=== PATIENT | female | born 1950 | race Caucasian/White ===

== ENCOUNTER 2022-10-21 16:16 | Outpatient (REF) | payer MEDICARE, SELFPAY ==
[2022-10-21 17:33] LABS: Absolute Basophil Count 0.02 10^3/uL (0.0-0.2); Absolute Eosinophil Count 0.05 10^3/uL (0.0-0.7); Absolute Lymphocyte Count 2.02 10^3/uL (1.2-3.4); Absolute Neutrophil Count 1.17 10^3/uL (1.2-6.7); Basophils % 0.6; Eosinophils % 1.4; HCT 23.5 % (36.0-46.0); HGB 8.7 g/dL (11.2-15.7); Lymphocytes % 58.4; MCH 36.4 pg (27.0-33.0); MCV 98 fL (80-95); MPV 11.5 fL (8.0-11.0); Monocytes % 5.8; Neutrophils % 33.8; Platelet Count 100 10^3/uL (130-400); RBC 2.39 10^6/uL (3.93-5.22); RDW-SD 61.1 fL; WBC 3.46 10^3/uL (4.4-10.8)
== END 2022-10-21 16:17 | disposition home or self-care (01) ==
LOC: LBN 16:16
PROVIDERS: Visit Provider Obstetrics & Gynecology Gynecologic Oncology
DX: C54.1 Malignant neoplasm of endometrium (principal)
CPT/HCPCS: 85025

== ENCOUNTER 2025-01-01 19:00 | Inpatient (IN) | payer MEDICARE, SELFPAY ==
--- NOTE | 2025-01-01 18:14 | W.PC.ACHO ---
Registration Status: PRE IN Primary Language: Preferred Language: v v v v v v v v v Sending and/or Receiving Nurses: Please use comment section below to note any information pertinent to the patient hand-off not included above. Information / Comments: alert and oriented x 4 Lungs clear and RA last BM 12/31 continent with bedside commode Left AKA +2 edema: mildred intact and open to air right leg intact +1 edema: Heel calus that weeps, bandage is c/d/I patient able to stand and pivot current smoker Fingerstick glucose range 180s-200s Full Code Report received from: Kelton Uriarte, [facility]
[2025-01-01 19:29] VITALS: BP 117/69; PULSE 85; RESP 15; TEMP 36.4; O2SAT 96
--- NOTE | 2025-01-01 22:57 | W.PM.HP.N ---
Date of service: 01/01/25 Time of Service: 20:00 Assessment and Plan Assessment and plan (1) Status post above-knee amputation of left lower extremity: Start date: 12/20/24 Status: Acute Assessment and plan: This is a 74-year-old lady who had an ischemic limb prior to hospitalization at [facility] 12/20/2024 at which time she required left AKA with advanced tissue damage from prolonged hypoxia after thrombus and occlusion of her left superficial femoral artery. She had no collaterals. She is doing well postoperatively with her wound stump clean and dry. She is weak and not able to transfer safely and will need to rehabilitate to be independent at home alone with her son working during the day. She does live with her son and plan to return to that living situation. PT and OT will be consulted and patient will continue her chronic medical therapy including diabetes control while hospitalized. She is reconsidering whether to continue chemotherapy for her recurrent stage III endometrial adenocarcinoma. For now, she is a full code. (2) PVD (peripheral vascular disease): Status: Chronic Assessment and plan: Patient had no knowledge of PVD in the past and this acute thrombus may have been prompted by her hypercoagulability with recurrent cancer and chronic tobacco use as well as having hyperlipidemia with hypertension. She has never had a cardiac event. Now she is on aspirin daily. She also is on subcu heparin for DVT prophylaxis. She will continue follow-up at [facility]. (3) HTN (hypertension): Status: Chronic Assessment and plan: Continue outpatient medical therapy adjusting as needed. (4) Type 2 diabetes mellitus: Status: Chronic Assessment and plan: Continue outpatient medical therapy monitoring for hypoglycemia. He appears to be eating well and is well removed from any contrast imaging and metformin will be continued. (5) Hyperlipidemia: Status: Acute Assessment and plan: Continue Lipitor 40 mg daily. This is a new medication. (6) Depression: Status: Chronic Assessment and plan: Continue outpatient medical therapy. She appears to be stable and in remission. (7) Adenocarcinoma of endometrium, stage 3: Status: Chronic Assessment and plan: Recurrent the patient reinitiating chemotherapy but she will reevaluate whether she wants to proceed after discussion with her [facility] REP/oncology team at [facility]. (8) Continuous tobacco abuse: Status: Chronic Assessment and plan: She will not smoke while hospitalized and advised cessation of tobacco at this time. History of Present Illness History of Present Illness Chief Complaint: Weakness status post left AKA for acute ischemic limb. Narrative: This is a 74-year-old female patient who recent was hospitalized at [facility] with an acute ischemic left leg secondary to thrombus in her superficial left femoral artery and compromised tissue below the knee prompting left AKA after attempt of thrombectomy and 4 compartment fasciotomy. She has a history of stage III adenocarcinoma of her uterus diagnosed November 30, 2021 which was treated with surgery and follow-up chemotherapy with complications after surgery having wounds did not heal in her abdomen but eventually clearing with presumed remission. She was off chemotherapy until just recently when she had back pain in early November 2024 with imaging revealing metastatic disease in her lower back. She resumed chemotherapy after this diagnosis and was traveling to [facility] for these treatments. On 12/07/2024 the patient stayed overnight at [facility] because of a reaction to her chemotherapy. She did return home but had left leg pain which was progressive since that overnight stay worsening to the point where she was walking with a cane and then a walker and then not walking. She has been staying with her son recently because of her debilitated state. She was sent to [facility] 12/18/2024 to evaluate her leg pain but there is a did not find anything. When her pain progressed over the next several days, she decided to go to to [facility] 12/20/2024 for evaluation rather than the local hospital. She does live in [place], [place]. When she called her caregiver from home prior to presenting to [facility] she was sent some oxycodone for pain management. Her pain became severe with weakness and lack of sensation in her left lower extremity prior to presenting to [facility] with a subacute ischemic limb. Postsurgery the patient is weak and not able to ambulate safely with plans to return home eventually living with her son though he is not stay with her 24 hours a day. She does need to be independent for returning home and was transferred to this facility for continued rehabilitation with PT and OT as well as managing her medical problems. She does have diabetes which is fairly well-controlled and her other medical problems appear stable. Medication list was reviewed and her meds reconciled for continuation. Plans are to return home to live with her son. She is a full code. Review of Systems Narrative: 13 point review of systems otherwise unrevealing or stable. PFSH All Active Problems (Updated 01/01/25 @ 23:37 by Dandy Noguera) Status post above-knee amputation of left lower extremity (Acute) Continuous tobacco abuse (Chronic) Adenocarcinoma of endometrium, stage 3 (Chronic) Depression (Chronic) Hyperlipidemia (Acute) Type 2 diabetes mellitus (Chronic) HTN (hypertension) (Chronic) PVD (peripheral vascular disease) (Chronic) Social History Smoking/Tobacco Use Status: Current-Occasional Tobacco Type: cigarettes Years smoked: 15 Tobacco: How many years used: 15 Smoking risk assessment performed?: Yes Alcohol Intake: former Drug use: Never Substance use type: does not use Housing: house Do you feel safe at home: Yes Do you feel safe in your relationship?: Yes Meds Allergies and Home Medications Allergies Allergy/AdvReac Type Severity Reaction Status Date / Time No Known Allergies Allergy Verified 01/02/25 06:03 Home Medications ?Medication ?Instructions ?Recorded ?Confirmed ?Type acetaminophen 325 mg tablet 325 mg PO Q6H PRN 01/01/25 01/01/25 History arginine 7 gram-glutam 7 1 packet PO BID 01/01/25 01/01/25 History gram-CaHMB 1.5 lcmg-bcred-xw-min oral pwd pkt (Enrique (with collagen)) aspirin 81 mg chewable tablet 81 mg PO DAILY 01/01/25 01/01/25 History atorvastatin 40 mg tablet (Lipitor) 40 mg PO QPM 01/01/25 01/01/25 History heparin (porcine) 5,000 unit/mL 5,000 unit subcut Q8H 01/01/25 01/01/25 History injection solution insulin glargine-yfgn 100 unit/mL 18 unit subcut QPM 01/01/25 01/01/25 History subcutaneous solution (Semglee (insulin glargine-yfgn)) insulin lispro 100 unit/mL 1 sliding scale dose subcut 01/01/25 01/01/25 History subcutaneous solution (Humalog USEASDIRECTD U-100 Insulin) lidocaine 4 % topical patch 1 patch topical Q24H 01/01/25 01/01/25 History lisinopril 2.5 mg tablet 2.5 mg PO DAILY 01/01/25 01/01/25 History Held on 01/01/25. Instructions: Reason not stated in [facility] records magnesium oxide 400 mg PO BID 01/01/25 01/01/25 History melatonin 3 mg tablet 3 mg PO HS PRN 01/01/25 01/01/25 History metformin 500 mg tablet 500 mg PO BIDWMEAL 01/01/25 01/01/25 History metoprolol tartrate 50 mg tablet 50 mg PO BID 01/01/25 01/01/25 History miconazole nitrate 2 % topical 1 applic topical BID 01/01/25 01/01/25 History powder (Antifungal (miconazole)) oxycodone 5 mg tablet 5 mg PO Q4H PRN pain (scale score 01/01/25 01/01/25 History 4-6) polyethylene glycol 3350 17 17 g PO BID 01/01/25 01/01/25 History gram/dose oral powder sennosides 8.6 mg-docusate sodium 2 tab-cap PO BID 01/01/25 01/01/25 History 50 mg tablet (Laxative Stool Softener With Senna) sertraline 50 mg tablet 50 mg PO DAILY 01/01/25 01/01/25 History Exam Narrative Exam Narrative: General: Patient is morbidly obese, alert and oriented x 3 and in no acute distress. She has normal conversation and at times is joking and insightful as to her prognosis and her events recently. HEENT: Normocephalic, coarsened facial features, eyes with pupils equal and reactive light symmetrically, extraocular movement tact and sclera anicteric. Oropharynx with slightly dry mucosa and fair dentition. She does have a shaven scalp with alopecia from chemotherapy. Neck: Supple without JVD. Back: Kyphotic without CVA tenderness. Lungs: Fair aeration and clear to auscultation percussion with no focalizing rales or rhonchi. Breast: Exam deferred. Heart: Regular rate and rhythm with no murmurs or gallops appreciated. Abdomen: Obese contour, pannus with slight erythematous intertriginous rash below her pannus, nontender to palpation, soft and no guarding. Multiple surgical scars with atrophy over her low ventral and right quadrant of her abdomen. No open ulcerations. Bowel sounds are positive all quadrants. No palpable hepatosplenomegaly. Genitalia/rectal: Exam deferred. Extremities: Without clubbing, cyanosis or grossly pitting edema. Skin: Pale, warm and dry. Neuro: Cranial nerves II through XII gross intact, no focalized motor deficits and no tremor. Psych: Normal affect and mood. At times euphoric affect but good insight. No abnormal thought processes. Remote and recent memory intact. Results Labs 01/02/25 05:35 01/02/25 05:35 Last Vital Signs Temp 36.4 C L 01/01/25 19:29 Pulse 85 01/01/25 19:29 Resp 15 01/01/25 19:29 BP 117/69 01/01/25 19:29 Pulse Ox 96 01/01/25 19:29 Time Spent Time spent with Patient: >75 minutes Time was spent: preparing to see the patient(eg.review tests), obtaining and/or reviewing separately otained hiistory, ordering medications,tests, procedures, indepentently interpreting results, counseling the patient and care coordination
[2025-01-01 22:59] VITALS: BP 117/69; PULSE 85; RESP 15; TEMP 36.4; O2SAT 96
[2025-01-01] MEDS: Heparin 5,000 UNITS/ML VIAL 5000 UNITS SC (23:22)
[2025-01-01 23:28] VITALS: BP 116/74; PULSE 89; RESP 15; TEMP 36.8; O2SAT 97
[2025-01-02 07:13] LABS: HCT 29.3 % (36.0-46.0); HGB 9.4 g/dL (11.2-15.7); MCH 29.3 pg (27.0-33.0); MCHC 32.1 % (32.0-36.0); MCV 91 fL (80-95); MPV 9.4 fL (8.0-11.0); Platelet Count 229 10^3/uL (130-400); RBC 3.21 10^6/uL (3.93-5.22); RDW 16.8 % (11.7-14.6); RDW-SD 53.7 fL; WBC 4.94 10^3/uL (4.4-10.8)
[2025-01-02 07:29] LABS: ALT 17 U/L (14-59); AST 10 U/L (15-37); Albumin 3.2 g/dL (3.4-5.0); Alkaline Phosphatase 121 U/L (46-116); Anion Gap 9.6 mmol/L (3-11); BUN 45 mg/dL (7-18); Bilirubin, Total 0.4 mg/dL (0.2-1.0); CO2 26.4 mmol/L (21.0-32.0); Calcium 9.4 mg/dL (8.5-10.1); Chloride 103 mmol/L (98-107); Estimated GFR 67.92 (mL/min/1.73m2); Glucose 190 mg/dL (74-106); Potassium 4.0 mmol/L (3.5-5.1); Sodium 139 mmol/L (136-145); Total Protein 7.5 g/dL (6.4-8.2)
[2025-01-02 07:30] VITALS: BP 122/72; PULSE 88; RESP 16; TEMP 36.8; O2SAT 100
[2025-01-02] MEDS: Sennosides/Docusate Sodium TAB 2 TAB PO (08:18)
[2025-01-02] MEDS: Metoprolol 50 MG TAB PO (08:18)
[2025-01-02] MEDS: Aspirin 81 MG CHEW PO (08:19)
[2025-01-02] MEDS: Magnesium Oxide 400 MG TAB PO (08:19)
[2025-01-02] MEDS: Sertraline 50 MG TAB PO (08:19)
[2025-01-02] MEDS: Miconazole 2% Topical Powder 85 GM BTL TP (08:20)
[2025-01-02] MEDS: Heparin 5,000 UNITS/ML VIAL 5000 UNITS SC ×2 (08:20→15:56)
[2025-01-02] MEDS: Insulin Aspart 300 UNITS/3 ML PEN SC ×3 (08:21→17:26)
--- NOTE | 2025-01-02 09:28 | INITIAL_ITS ---
Date of service: 01/02/25 Time of Service: :28 Care Management Initial Assmt Initial Assessment Reason for Hospitalization: AKA Functional Status/Living Situation Patient Presentation: Radha was sitting up in a chair when CM met with her. She was very pleasant in interaction and easily engaged with CM.Radha was transferred from [facility] for a SB- 1 admission following a hospitalization for a Left AKA. She is able to transfer with assistance and her goal is to be able to transfer independently from chair or bed to W/C and back. She hopes to be able to be fitted for a prosthesis and walk again once her wound is sufficiently healed. Radha also has endometrial cancer. Her orignal diagnosis and treatment was in 2021 but she has recently had a recurrence. She had received 2 doses of chemotherapy before she developed the vascular issues necessitating the amputation. At this point Radha stated that she is not sure if she will pursue additional chemotherapy or not. She will postpone that decision until she has completed her rehabilitation. CM will attempt to schedule follow up visits with Vascular Surgery and Gynecological/Oncology for Radha for continuity of care. Radha lives in a single family with her son in [facility]. Her son Boris is very devoted and is determined to have Radha return home. They are both concerned that he works long days and want to ensure Radha will be safe alone when he is gone. 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 CM provided Boris with the forms and will assist with their completion as needed. Town of Residence: [place], [place] Resides with: Other (brother) Significant Other/Family: Out of area Employment Status: Retired Instrumental Activities of Daily Living (ADLs): Requires support Medications Medication Management: No Issues/Barriers identified Physical Functioning/Mobility Assistive Device: wheelchair Advance Directives Advance Directives: Do you have an Advance Directive: N , 19:10 AD On File at [facility]: N 01/01/25, 19:10 Date Asked 01/01/25 01/01/25, 19:10 AD Date Reviewed COLST On File at [facility] COLST Date Scanned Code Status Resuscitation Status Full Code Portal Pt does not currently have a portal and education provided: Yes Insurance Coverage/Financial Issues Insurance: Medicare Care Team Visit Care Team Role Provider Type Jessica Dey APRN MD [facility] STAFF PHYSICIAN Unknown Unknown Primary Care Provider STAFF PHYSICIAN Genny Garcia Other Providers REG OCCUPATIONAL THERAPIST InPatient Zhen Fraga Other Providers OTHER Enrique Moore Admit Provider [facility] STAFF PHYSICIAN Attending Provider Discharge Potential Discharge Needs: Surgical F/U Appt Anticipated Barriers to Discharge: Medical Status Patient/Family Education Needs: Review discharge instructions, discuss Ask Me Three Transportation: Other (to be determined by disposition) Plan: Radha was transferred from [facility] yesterday after having an AKA. She will likely transition to [facility] for rehab as there does not appear to be any need for an acute inpatient admission. CM will follow. Social Determinants of Health Screening Will the Patient Participate in the Screening?: Declined to provide PFSH All Active Problems (Updated 01/01/25 @ 23:37 by Dandy Noguera) Status post above-knee amputation of left lower extremity (Acute) Continuous tobacco abuse (Chronic) Adenocarcinoma of endometrium, stage 3 (Chronic) Depression (Chronic) Hyperlipidemia (Acute) Type 2 diabetes mellitus (Chronic) HTN (hypertension) (Chronic) PVD (peripheral vascular disease) (Chronic) Social History Smoking/Tobacco Use Status: Current-Occasional Tobacco Type: cigarettes Years smoked: 15 Tobacco: How many years used: 15 Smoking risk assessment performed?: Yes Alcohol Intake: former Drug use: Never Substance use type: does not use Housing: house Do you feel safe at home: Yes Do you feel safe in your relationship?: Yes
--- NOTE | 2025-01-02 09:50 | W.PM.PROGNOT ---
Date of Service Date of service: 01/02/25 Time of Service: 09:50 Assessment and Plan Assessment and plan (1) Status post above-knee amputation of left lower extremity: Start date: 12/20/24 Status: Acute Assessment and plan: This is a 74-year-old lady who had an ischemic limb prior to hospitalization at [facility] 12/20/2024 at which time she required left AKA with advanced tissue damage from prolonged hypoxia after thrombus and occlusion of her left superficial femoral artery. She had no collaterals. She is doing well postoperatively with her wound stump clean and dry. She is weak and not able to transfer safely and will need to rehabilitate to be independent at home alone with her son working during the day. She does live with her son and plan to return to that living situation. PT and OT will be consulted and patient will continue her chronic medical therapy including diabetes control while hospitalized. She is reconsidering whether to continue chemotherapy for her recurrent stage III endometrial adenocarcinoma. For now, she is a full code. (2) PVD (peripheral vascular disease): Status: Chronic Assessment and plan: Patient had no knowledge of PVD in the past and this acute thrombus may have been prompted by her hypercoagulability with recurrent cancer and chronic tobacco use as well as having hyperlipidemia with hypertension. She has never had a cardiac event. Now she is on aspirin daily. She also is on subcu heparin for DVT prophylaxis. She will continue follow-up at [facility]. (3) HTN (hypertension): Status: Chronic Assessment and plan: Continue outpatient medical therapy adjusting as needed. (4) Type 2 diabetes mellitus: Status: Chronic Assessment and plan: Continue outpatient medical therapy monitoring for hypoglycemia. He appears to be eating well and is well removed from any contrast imaging and metformin will be continued. (5) Hyperlipidemia: Status: Acute Assessment and plan: Continue Lipitor 40 mg daily. This is a new medication. (6) Depression: Status: Chronic Assessment and plan: Continue outpatient medical therapy. She appears to be stable and in remission. (7) Adenocarcinoma of endometrium, stage 3: Status: Chronic Assessment and plan: Recurrent the patient reinitiating chemotherapy but she will reevaluate whether she wants to proceed after discussion with her FELT HANGER/oncology team at [facility]. (8) Continuous tobacco abuse: Status: Chronic Assessment and plan: She will not smoke while hospitalized and advised cessation of tobacco at this time. Objective Last Vital Signs Temp 36.8 C 01/02/25 07:30 Pulse 88 01/02/25 07:30 Resp 16 01/02/25 07:30 BP 122/72 01/02/25 07:30 Pulse Ox 100 01/02/25 07:30 Laboratory Results - last 24 hr 01/02/25 06:20 WBC 4.94 RBC 3.21 L Hgb 9.4 L Hct 29.3 L MCV 91 MCH 29.3 MCHC 32.1 RDW 16.8 H Plt Count 229 MPV 9.4 Sodium 139 Potassium 4.0 Chloride 103 Carbon Dioxide 26.4 Anion Gap 9.6 BUN 45 H Creatinine 0.9 Est GFR (CKD-EPI 2020) 67.92 Glucose 190 H Calcium 9.4 Total Bilirubin 0.4 AST 10 L ALT 17 Alkaline Phosphatase 121 H Total Protein 7.5 Albumin 3.2 L
[2025-01-02 11:33] LABS: Lab Add On Test DONE
[2025-01-02 11:55] LABS: Magnesium 2.0 mg/dL (1.8-2.4)
[2025-01-02 12:03] LABS: Hemoglobin A1C 6.1 % (<5.7)
--- NOTE | 2025-01-02 14:17 | OTIE_ITS ---
Occupational Therapy Notes Inpatient Occupational Therapy Evaluation Date: 01/02/25 Referring Doctor: Dandy Pederson OT Orders: Extended stay weakness Precautions: Fall, Standard, Full PATIENT PROFILE/ADMITTING DIAGNOSIS: Pt is a 74 year old female who was admitted to [facility] for an extended stay for weakness post a above the knee amputation of (L) LE. Past Medical History: All Active Problems (Updated 01/01/25 @ 23:37 by Dandy Noguera) Status post above-knee amputation of left lower extremity (Acute) Continuous tobacco abuse (Chronic) Adenocarcinoma of endometrium, stage 3 (Chronic) Depression (Chronic) Hyperlipidemia (Acute) Type 2 diabetes mellitus (Chronic) HTN (hypertension) (Chronic) PVD (peripheral vascular disease) (Chronic) Social History/Home Situation: Pt is a 74 year old female who lives with her son. She notes that she does not drive. She gave this up when she was undergoing Chemotherapy and had cataracts which did not allow her to renew her license at the time. She notes that she was (I) with her ADL/IADL routines. She has had HH in the past to (A) with wound care on her stomach and is interested in this again when she returns home. Her son provided support for her in the home including laundry, cooking at times and (A) as needed. She has a tub shower but notes that her son called today to inform her of a shower bench seat that he was getting which she is unsure how it will work but notes that she does feel that this will be helpful. She has adaptive equipment from [facility] including a sock aide, dressing stick, bowel movement wiper and crm marketing analyst. She is very receptive to any ideas or equipment that may be helpful for her. FWW as needed for functional mobility. Equipment owned/DME: Please refer to social hx above. SUBJECTIVE: Pt was sitting in chair when OT arrived. She is agreeable to OT consult and reports that she is looking to get better with functional mobility. OBJECTIVE: General Observation: Pleasant, IV in UE, missing above the knee (L) amputation. Mental Status: A&OX4 Pain: no c/o pain with OT consult. ROM: RUE AROM WFL L UE AROM WFL STRENGTH: RUE Shoulder flexion 4/5, bicep 5/5, tricep 4/5, psychological anthropologist is strong and symmetrical LUE Shoulder flexion 4/5, bicep 5/5, tricep 4+/5, psychological anthropologist is strong and symmetrical FUNCTIONAL MOBILITY/ADLS: Transfers with (A) d/t LOB and adjustment to (L) above the knee amputation BATHING Pt reports that she performed this earlier today. She has full AROM of the UE to be able to perform (I). Progression to standing at sink with PUFFER TENDER would be a next step progression at this time. DRESSING mod (I) LE, pt notes that she has not tried a shirt but is able to don and [facility] gown GROOMING (I) seated, next step progression is to perform at sink with PUFFER TENDER TOILETING on comode with (I) toileting hygiene, requires (A) with functional mobility to and from commode EATING (I) seated in chair BALANCE: Static sitting Normal Dynamic Sitting Normal SPECIAL TESTS: Daily Activity Limitations Standardized Measure [facility] AM -PAC ?6 clicks? Daily Activity Inpatient Short Form: Raw score: 21 Standardized score: 44.27 CMS score: 32.79% INFORMED CONSENT/EDUCATION: Pt instructed in purpose of OT Consult and plan of care. ASSESSMENT: Patient is a 74-year-old female referred to occupational therapy services with diagnosis of extended stay for weakness post a above the knee amputation of (L) LE. Patient presents with clinical signs and symptoms consistent with dx, as demonstrated by the following impairment level fi ndings/functional limitations: Impairments in ADL/IADL and leisure impairments, decreased functional mobility required for ADL performance, decreased functional activity tolerance, impairments in standing tolerance for ADLs at sink d/t LOB. AMPAC score 21 Patient is assessed as a Moderate 15031 complexity based on the following: History: see above Examination: see functional limitations as noted above Presentation: evolving Decision Making: AMPAC score 21 GOALS Goals x1 week 1. Transfers (I) 2. Dressing seated (I) 3. Bathing standing at sink (I) 4. Toileting on toilet (I) 5. Eating (I) PLAN OF CARE/TREATMENT PLAN: 1x/day, 3-5 days/ week x 1week Initiate Occupational Therapy Services for bathing, dressing, grooming, toileti ng, eating, transfer training. DISCHARGE RECOMMENDATIONS OT recommends that pt return home with ervices when medically cleared per MD. TREATMENT TIME/MINUTES/CODES 79659, 20 minutes [facility] [place], [place]
--- NOTE | 2025-01-02 15:11 | W.PM.DS.N ---
Date of service: 01/02/25 Time of Service: 15:11 DS: Diagnosis Discharge Diagnosis (1) Status post above-knee amputation of left lower extremity: Status: Acute (2) PVD (peripheral vascular disease): Status: Chronic (3) HTN (hypertension): Status: Chronic (4) Type 2 diabetes mellitus: Status: Chronic (5) Hyperlipidemia: Status: Acute (6) Depression: Status: Chronic (7) Adenocarcinoma of endometrium, stage 3: Status: Chronic (8) Continuous tobacco abuse: Status: Chronic Discharge Plan Disposition Patient Disposition: Swing Bed(Skilled,SB1) Condition: Stable Discharge Details Reason For Visit: above knee amputation,limb ischemia Admit Date/Time: 01/01/25 19:00 Admit Provider: Enrique Moore Attending Provider: Enrique Moore Primary Care Provider: Unknown,Unknown Hospital Course Hospital Course: This is a 74-year-old female patient w a PMHx of diabetes, 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 On 12/07/2024 the patient stayed overnight at [facility] because of a reaction to her chemotherapy. She did return home but had left leg pain which was progressive since that overnight stay worsening to the point where she was walking with a cane and then a walker and then not walking. The patient was directed to [facility] [place] [facility] 12/18/2024 to evaluate her leg pain but there is a did not find anything. When her pain progressed over the next several days, she decided to go to to [facility] 12/20/2024 for evaluation rather than the local hospital. She does live in [place], [place]. When she called her caregiver from home prior to presenting to [facility] she was sent some oxycodone for pain management. Her pain became severe with weakness and lack of sensation in her left lower extremity prior to presenting to [facility] with a subacute ischemic limb. Postsurgery the patient is weak and not able to ambulate safely with plans to return home eventually living with her son though he is not stay with her 24 hours a day. She does need to be independent for returning home and was transferred to this facility for continued rehabilitation with PT and OT as well as managing her medical problems. The patient plans are to return home to live with her son and decision to continue chemotherapy is undetermined. Palliative care consultation initiated. The patient is a full code. The patient is hemodynamically stable and afebrile; blood work is w/o actinable items. The patient will be tadmitted to [facility] bed [facility] for ongoing PT and OT. Discussed with Dr. Moore [place] Meds and New Rx's Prescriptions: No Action sertraline 50 mg tablet 50 mg PO DAILY Patient Comments: TAKE ONE TABLET BY MOUTH ONCE DAILY lisinopril 2.5 mg tablet 2.5 mg PO DAILY Patient Comments: TAKE ONE TABLET BY MOUTH ONCE DAILY metformin 500 mg tablet 500 mg PO BIDWMEAL metoprolol tartrate 50 mg tablet 50 mg PO BID Patient Comments: TAKE ONE TABLET BY MOUTH TWICE DAILY acetaminophen 325 mg tablet 325 mg PO Q6H PRN Enrique (with collagen) 7-7-1.5 gram powder in packet 1 packet PO BID Rx Instructions: mix 1 packet with 8-10 oz liquid aspirin 81 mg tablet,chewable 81 mg PO DAILY atorvastatin [Lipitor] 40 mg tablet 40 mg PO QPM heparin (porcine) 5,000 unit/mL solution 5,000 unit subcut Q8H insulin glargine-yfgn [Semglee(insulin glargine-yfgn)] 100 unit/mL solution 18 unit subcut QPM insulin lispro [Humalog U-100 Insulin] 100 unit/mL solution 1 sliding scale dose subcut USEASDIRECTD lidocaine 4 % adhesive patch,medicated 1 patch topical Q24H Rx Instructions: may leave on for up to 12 hrs magnesium oxide 400 mg magnesium tablet 400 mg PO BID melatonin 3 mg tablet 3 mg PO HS PRN miconazole nitrate [Antifungal (miconazole)] 2 % powder 1 applic topical BID Patient Comments: B/l groin and under b/l breasts oxycodone 5 mg tablet 5 mg PO Q4H PRN (Reason: pain (scale score 4-6)) polyethylene glycol 3350 17 gram/dose powder 17 g PO BID sennosides-docusate sodium [Lax Stool Softener With Senna] 8.6-50 mg tablet 2 tab-cap PO BID Discharge Instructions Activity:: Activity as Tolerated Equipment/Supplies:: Walker Diet:: Heart healthy diabetic DS: Summary Time Spent with Patient providing and/or coordinating discharge services: Greater than 30 minutes Status at Discharge Functional status at discharge: uses cane/walker Overall status at discharge: patient is progressing back to baseline Mental Status: mental status grossly normal Speech and Movement: speech and movement normal Mood: congruent mood Affect: sad Exam Narrative Exam Narrative: 74 years old morbidly obese female patient without acute distress, no focal neurological deficit, clear lungs unlabored breathing, S1-S2 regular heart rate and rhythm, abdomen is large soft and nontender slightly discolored at healed wound site, no CVA tenderness, left BKA with mildred and sutures intact without drainage or redness remains warm and pink in color Psych Mental Status: mental status grossly normal Speech and Movement: speech and movement normal Mood: congruent mood Affect: sad DS: Data Vitals/I&O Vitals and I&O: Vital Signs Temperature 36.8 C 01/02/25 07:30 Temperature Source Temporal Artery Scan 01/02/25 07:30 Pulse 88 01/02/25 07:30 Respiratory Rate 16 01/02/25 07:30 Respiratory Effort Non-Labored 01/01/25 22:59 Respiratory Depth Normal 01/01/25 22:59 Respiratory Pattern Normal 01/01/25 22:59 Blood Pressure 122/72 01/02/25 07:30 Blood Pressure Mean 88 01/02/25 07:30 Pulse Oximetry 100 01/02/25 07:30 Oxygen Delivery Method Room Air 01/02/25 07:30 Oxygen Flow Rate 0 01/02/25 07:30 Pain Level 0 01/02/25 07:30 Intake & Output 01/01/25 01/02/25 01/02/25 23:59 11:59 23:59 Intake Total 250 / 250 Output Total 750 / 950 200 / 950 Balance -500 / -700 -200 / -700 Weight 99.7 kg 99.7 kg Intake: Oral 250 / 250 Output: Urine 750 / 950 200 / 950 Other: Urine Color Light Patrizia Urine Appearance Clear Clear Urine Odor Normal Normal Data Completed and Pending Labs on day of discharge: Labs from last 24 hours 01/02/25 01/02/25 11:32 06:20 WBC 4.94 RBC 3.21 L Hgb 9.4 L Hct 29.3 L MCV 91 MCH 29.3 MCHC 32.1 RDW 16.8 H Plt Count 229 MPV 9.4 Sodium 139 Potassium 4.0 Chloride 103 Carbon Dioxide 26.4 Anion Gap 9.6 BUN 45 H Creatinine 0.9 Est GFR (CKD-EPI 2020) 67.92 Glucose 190 H Hemoglobin A1c 6.1 H Calcium 9.4 Magnesium 2.0 Total Bilirubin 0.4 AST 10 L ALT 17 Alkaline Phosphatase 121 H Total Protein 7.5 Albumin 3.2 L Add-On Test Request DONE PFS All Active Problems (Updated 01/01/25 @ 23:37 by Dandy Noguera) Status post above-knee amputation of left lower extremity (Acute) Continuous tobacco abuse (Chronic) Adenocarcinoma of endometrium, stage 3 (Chronic) Depression (Chronic) Hyperlipidemia (Acute) Type 2 diabetes mellitus (Chronic) HTN (hypertension) (Chronic) PVD (peripheral vascular disease) (Chronic) Social History Smoking/Tobacco Use Status: Current-Occasional Tobacco Type: cigarettes Years smoked: 15 Tobacco: How many years used: 15 Smoking risk assessment performed?: Yes Alcohol Intake: former Drug use: Never Substance use type: does not use Housing: house Do you feel safe at home: Yes Do you feel safe in your relationship?: Yes Time Spent with Patient Time Spent with Patient: >85 minutes Time was spent: preparing to see the patient(eg.review tests), obtaining and/or reviewing separately otained hiistory, ordering medications,tests, procedures, referring, communicating with other health child care sitter, indepentently interpreting results, counseling the patient and care coordination
--- NOTE | 2025-01-02 15:27 | IN_ITS ---
PT Notes Visit Reasons: above knee amputation,limb ischemia Physical Therapy Inpatient Initial Evaluation Date: 01/02/2025 Referring Doctor: Enrique Moore MD PT Orders: PT CONSULT: Eval for Assistive Device, Safety Consult for D/C Precautions: Fall. Standard. L Transfermoral residula limb precautions: No pillow under limb, keep hip straight. Avoid prolonged sitting. Maintain equal weight distribution while sitting. Patient Profile/Admitting Diagnosis: Patient is a 74-year-old female with stage 3 adenocarcinoma of uterus S/P surgery and chemotherapy supposedly reinitiating chemotherapy due to recent discovery of metastases to low back admitted today from [facility] for rehabiliataion following L transfermoral amputation on 12/20/2024 after a failed thrombectomy and 4 failed compartment fasciotomy resulting from acute ischemic left leg secondary to thrombus in her superficial L femoral artery and compromised tissue below the L knee. PMHX: All Active Problems (Updated 01/01/25 @ 23:37 by Dandy Noguera) Status post above-knee amputation of left lower extremity (Acute) Continuous tobacco abuse (Chronic) Adenocarcinoma of endometrium, stage 3 (Chronic) Depression (Chronic) Hyperlipidemia (Acute) Type 2 diabetes mellitus (Chronic) HTN (hypertension) (Chronic) PVD (peripheral vascular disease) (Chronic) Social History/Home Situation: Lives with son and son's family in a handicap-accessible residence. Also has a daughter who lives in another town. Independent with ambulation without a walker at home prior to amputation. Equipment Owned/DME: wheelchair, FWW, recliner Subjective: My goal is to walk to my recliner at home and stay there. Son Tommy came in in the middle of the session and is hopeful as well for his mom to go home once discharged from here. Patient reported being tired and weak overall. Hopeful to go home from here once safe to do so. Denied headache, chest pain, and lightheadedness throughout session. reported 2-3/10 in the L residual limb. Did not report any phantom limb sensation. Objective: General Observation: Patient seated on bedside recliner. High BMI. Mental Status: Alert and oriented as to person, place, time, and purpose. Able to pay attention, focus, and respond appropriately. Pain: 2-3/10 in the L transfemoral residula limb Vital Signs: Closely monitored by nursing staff L Transfemoral residual limb characteristics: L long transfemoral residual limb bulbous and swollen with well-approximated incision having 12 stitches and 24 mildred along its 21 cm length; another vertical medial femoral thrombectomy incision has 18 mildred along its 12 cm length. Residual limb length from iliac crest to tip 48 cm. Mid thigh circumference at 68.4 cm. ROM: Right Upper Extremity: Shoulder Flexion WFL. Shoulder abduction WFL. Elbow flexion WFL. Wrist flexion WFL. Functional opening and closing of hand WFL. Left Upper Extremity: Shoulder Flexion WFL. Shoulder abduction WFL. Elbow flexion WFL. Wrist flexion WFL. Functional opening and closing of hand WFL. Right Lower Extremity: Hip flexion WFL. Hip abduction WFL. Knee flexion WFL. Ankle dorsiflexion to neutral only. Ankle plantarflexion WFL. Left Lower Extremity: Hip flexion 0-100 degrees. Hip abduction 0-30 degrees. L hip extension 10 degrees only. Strength: Right Upper Extremity: Shoulder flexors 4-/5. Shoulder abductors 4-/5. Elbow flexors 4-/5. Elbow extensors 4-/5. Vision Mixer strong. Left Upper Extremity: Shoulder flexors 4-/5. Shoulder abductors 4-/5. Elbow flexors 4-/5. Elbow extensors 4-/5. Vision Mixer strong. Right Lower Extremity: Hip flexors 4-/5. Hip abductors 4-/5. Knee flexors 4-/5. Knee extensors 4-/5. Ankle dorsiflexors 3-/5. Ankle plantarflexors 4-/5. Left Lower Extremity: Hip flexors 3-/5. Hip abductors 3-/5. Hip extensor 2-/5. Bed Mobility/Transfers: Minimal cueing provided for use of B hands as needed for support, movement sequence, AD management, and posture to reduce fall risk and minimize pain report Rolling stand by assist while pulling from arm rest of bariatric bedside recliner Supine to sit minimal assist using B hands for support Sit to stand minimal assist with FWW Stand to sit minimal assist with FWW Bed to bedside commode minimal assist with FWW Bedside commode to bed minimal assist with FWW Bed to reclining chair with minimal assist with FWW Gait: Instructed patient with level surface ambulation of 5 steps requiring minimal assist with front-wheeled walker. Patient appeared fatigued just with this quick transfer. Cueing given for posture, correct technique with pivoting and gentle hopping, efficent weight distribution onto walker for safety and stability. Stairs: Deferred today Balance: Static Sitting: Normal Dynamic Sitting: Normal Static Standing: Fair Dynamic Standing: Fair Special Tests: Mobility Limitations Standardized Measure [facility] AM-PAC 6 clicks Basic Mobility Inpatient Short Form: Raw Score: 18 CMS Score: 47% deficit Informed Consent/Education: Patient was instructed in purpose of PT consult and plan of care. Agreeable to proceed with established PT POC to achieve personal goals. Assessment: Patient is a 74-year-old female with stage 3 adenocarcinoma of uterus S/P surgery and chemotherapy supposedly reinitiating chemotherapy due to recent discovery of metastases to low back admitted today from [facility] for rehabiliataion following L transfermoral amputation on 12/20/2024 after a failed thrombectomy and 4 failed compartment fasciotomy resulting from acute ischemic left leg secondary to thrombus in her superficial L femoral artery and compromised tissue below the L knee. Patient presents with clinical signs and symptoms consistent with current/admitting diagnoses that have resulted to mobility limitations, gait instability, generalized weakness, and overall ADL decline as demonstrated by the following impairment level findings: 1. Decreased strength to L hip and trunk major muscle groups 2. Impaired sitting/standing balance 3. Impaired activity tolerance 4. Limitation of joint range of motion in L hip as above 5. L transfemoral amputaion Impairments are contributing to the following functional limitations: 1. Decline in bed mobility skills 2. Decline in transfer skills 3. Difficulty with ambulation without assistive device and physical assistance 4. Increased completion time for mobility ADL performance 5. Increased risk for falls 6. Unequal weight distribution over R LE Patient is assessed as a [id number] complexity based on the following: History: 74-year-old female with past medical history as indicated above Examination: Demonstrable impairment in strength, balance, and mobility level with underlying impairments and functional limitations as exhibited above as well as deficit score of 47% utilizing the [facility] Mobility Inpatient Short Form Presentation: Evolving Decision Makin moderate complexity Goals: Goals X 2 weeks 1. Supine-Sit independent 2. Sit-Supine independent 3. Sit-Stand independent 4. Stand-Sit independent with FWW 5. Bed-Chair independent with FWW 6. Chair-Bed independent with FWW 7. Independent gait on level surface with use of FWW for at least 15 feet without report of pain nor dyspnea 8. Independent with wheelchair propulsion/management for distances beyond 15 feet for independent indoor mobility 9. Independent with home exercise program 10. Independent self-postioning while in bed or wheelchair to prevent flexion contrature on L hip Plan of Care/Treatment Plan: 1-2x/day, 7 days/week x 1 week. Plan of care has been reviewed with the [employer]IST providing the service under Physical Therapy direction. Initiate Physical Therapy intervention for pain management as needed, strengthening, bed mobility, transfers, gait, stairs, balance training, and use of assistive device. DISCHARGE RECOMMENDATIONS: PT TREATMENT CODE/TIME: 77581 x 20 minutes for 1 unit, 29885 x 25 minutes for 2 units (14:26-15:11). Thank you for the opportunity to participate in the care of this patient. Michelle Guillen PT, DPT, CLT [facility] [place], [place]
--- NOTE | 2025-01-02 16:39 | CHAPLAIN ---
Radha came here from [facility]. She recently had a AKA and she's also been dealing with uterine cancer but currently is not having any chemo treatments. She was up in the chair when I visited and was pleasant. She did not seem interested in further conversation, but asked if I could get the remote and channel list for her.
[2025-01-02] MEDS: metFORMIN 500 MG TAB PO (17:26)
== END 2025-01-02 18:09 | disposition swing bed (61) | DRG 560 ==
PROVIDERS: Admitting Provider Family Medicine; Responsible Provider Nurse Practitioner Acute Care; Visit Provider Family Medicine
DX: Z47.81 Encounter for orthopedic aftercare following surgical amputation (principal); C79.51 Secondary malignant neoplasm of bone; Z68.41 Body mass index [BMI] 40.0-44.9, adult; Z89.612 Acquired absence of left leg above knee; I10 Essential (primary) hypertension; E11.51 Type 2 diabetes mellitus with diabetic peripheral angiopathy without gangrene; E78.2 Mixed hyperlipidemia; F32.A Depression, unspecified; R53.1 Weakness; C54.1 Malignant neoplasm of endometrium; F17.210 Nicotine dependence, cigarettes, uncomplicated; Z79.4 Long term (current) use of insulin; E66.01 Morbid (severe) obesity due to excess calories
CPT/HCPCS: 00123; 36415; 80053; 85027; 97162; 97530; 83036; 83735; 99223; 99239; J1644; J1815; J3490

== ENCOUNTER 2025-01-02 17:56 | Inpatient (IN) | payer MEDICARE, SELFPAY ==
--- NOTE | 2025-01-02 18:22 | W.PM.HP.N ---
Date of service: 01/02/25 Time of Service: 17:49 Assessment and Plan Assessment and plan (1) Status post above-knee amputation of left lower extremity: Status: Acute Assessment and plan: Hospitalized on at [facility] 12/20/2024 with subsequent left AKA d/t advanced tissue damage from prolonged hypoxia after thrombus and occlusion of her left superficial femoral artery. PT and OT consult L AKA wound stump is dry clean and dry- mildred and sutures still on - Consult notes / D/c summary re: follow-up dates with vascular Date for suture and staple removal : F/u with Dr. Xavier daniels surgeon @ [facility] due in a week - call [phone] for date (2) Continuous tobacco abuse: Status: Chronic (3) Adenocarcinoma of endometrium, stage 3: Status: Chronic Assessment and plan: Patient reporting lower spine mets findings s/p remission from primary site Was getting chemo when LLE thrombus and limb ischemia occured No chemo at this time - patient reporting that oncologist, Dr Nemo Locke - had pause chemo while the wound is healing. Patient uncertain about wanting chemo therapy Had an appointment for Jan 22 2025 at 13:[address] Locke @ Gynecology Oncology at [facility] - d/c note stating that provider to call patient to reschedule Palliative consult (4) Depression: Status: Chronic Assessment and plan: On home dose sertraline Repair Armature Winder consult (5) Hyperlipidemia: Status: Acute Assessment and plan: On home dose statin (6) Type 2 diabetes mellitus: Status: Chronic Assessment and plan: Gluc AC and HS with SSI coverage (7) HTN (hypertension): Status: Chronic Assessment and plan: Ongoing home medicine regimen (8) PVD (peripheral vascular disease): Status: Chronic Assessment and plan: No previous Hx of PVD Hypercoagulability in the setting of her recurrent CA in addition to nicotine dependence, hyperlipidemia and hypertension might have contributed to her acute thrombus formation in December 2024 ASA daily Heparin SC for DVT prophylaxis until 01/20/2025 (9) Discharge planning issues: Status: Acute Assessment and plan: Patient lives with her son and plan to return to that living situation. Palliative care consultation for goals of care Discussed with Dr. Moore History of Present Illness History of Present Illness Chief Complaint: Inability to ambulate and perform ADL s/p L AKA Narrative: This is a 74-year-old female patient w a PMHx of diabetes, stage III adenocarcinoma of her uterus? treated with surgery and follow-up chemotherapy and remission then subsequent lower back metastatic lesions, delayed?? wound healing was transferred from [facility] on 01/01/25 s/p left AKA after attempt of thrombectomy and 4 compartment fasciotomy d/t? acute ischemic left leg secondary to thrombus in her superficial left femoral artery and compromised tissue below the knee while having resumed chemotherapy after this diagnosis and was traveling to [facility] for these treatments.? On 12/07/2024 the patient stayed overnight at [facility] because of a reaction to her chemotherapy.? She did return home but had left leg pain which was progressive since that overnight stay worsening to the point where she was walking with a cane and then a walker and then not walking. The patient was directed to [facility] 12/18/2024 to evaluate her leg pain but there is a did not find anything.? When her pain progressed over the next several days, she decided to go to to [facility] 12/20/2024 for evaluation rather than the local hospital.? She does live in [place], [place].? When she called her caregiver from home prior to presenting to [facility] she was sent some oxycodone for pain management.? Her pain became severe with weakness and lack of sensation in her left lower extremity prior to presenting to [facility] with a subacute ischemic limb.? Post surgery the patient is weak and not able to ambulate safely with plans to return home eventually living with her son though he is not stay with her 24 hours a day.? She does need to be independent for returning home and was transferred to this facility for continued rehabilitation with PT and OT as well as managing her medical problems. The patient plans are to return home to live with her son and decision to continue chemotherapy is undetermined. Palliative care consultation initiated.?? The patient is a full code. The patient is hemodynamically stable and afebrile; blood work is w/o actionable items.She was discharged from inpatient and admitted to swing bed One level of care by the hospitalist team ? for ongoing PT and OT. The patient is a full code. The patient denied fever, chills, chest pain , nausea, vomiting, constipation, diarrhea or dysuria, but reported minimal right abdominal pain not necessitating pain meds at the time. Discussed with Dr. Raser Review of Systems All systems reviewed & are unremarkable except as noted in HPI and below PFSH All Active Problems (Updated 01/02/25 @ 18:36 by Jessica Dey APRN) Discharge planning issues (Acute) Status post above-knee amputation of left lower extremity (Acute) Continuous tobacco abuse (Chronic) Adenocarcinoma of endometrium, stage 3 (Chronic) Depression (Chronic) Hyperlipidemia (Acute) Type 2 diabetes mellitus (Chronic) HTN (hypertension) (Chronic) PVD (peripheral vascular disease) (Chronic) Social History Smoking/Tobacco Use Status: Current-Occasional Tobacco Type: cigarettes Years smoked: 15 Tobacco: How many years used: 15 Smoking risk assessment performed?: Yes Alcohol Intake: former Drug use: Never Substance use type: does not use Housing: house Do you feel safe at home: Yes Do you feel safe in your relationship?: Yes Meds Allergies and Home Medications Allergies Allergy/AdvReac Type Severity Reaction Status Date / Time No Known Allergies Allergy Verified 01/02/25 06:03 Home Medications ?Medication ?Instructions ?Recorded ?Confirmed ?Type acetaminophen 325 mg tablet 325 mg PO Q6H PRN 01/01/25 01/01/25 History arginine 7 gram-glutam 7 1 packet PO BID 01/01/25 01/01/25 History gram-CaHMB 1.5 tarz-hbffp-xl-min oral pwd pkt (Enrique (with collagen)) aspirin 81 mg chewable tablet 81 mg PO DAILY 01/01/25 01/01/25 History atorvastatin 40 mg tablet (Lipitor) 40 mg PO QPM 01/01/25 01/01/25 History heparin (porcine) 5,000 unit/mL 5,000 unit subcut Q8H 01/01/25 01/01/25 History injection solution insulin glargine-yfgn 100 unit/mL 18 unit subcut QPM 01/01/25 01/01/25 History subcutaneous solution (Semglee (insulin glargine-yfgn)) insulin lispro 100 unit/mL 1 sliding scale dose subcut 01/01/25 01/01/25 History subcutaneous solution (Humalog USEASDIRECTD U-100 Insulin) lidocaine 4 % topical patch 1 patch topical Q24H 01/01/25 01/01/25 History lisinopril 2.5 mg tablet 2.5 mg PO DAILY 01/01/25 01/01/25 History Held on 01/01/25. Instructions: Reason not stated in [facility] records magnesium oxide 400 mg PO BID 01/01/25 01/01/25 History melatonin 3 mg tablet 3 mg PO HS PRN 01/01/25 01/01/25 History metformin 500 mg tablet 500 mg PO BIDWMEAL 01/01/25 01/01/25 History metoprolol tartrate 50 mg tablet 50 mg PO BID 01/01/25 01/01/25 History miconazole nitrate 2 % topical 1 applic topical BID 01/01/25 01/01/25 History powder (Antifungal (miconazole)) oxycodone 5 mg tablet 5 mg PO Q4H PRN pain (scale score 01/01/25 01/01/25 History 4-6) polyethylene glycol 3350 17 17 g PO BID 01/01/25 01/01/25 History gram/dose oral powder sennosides 8.6 mg-docusate sodium 2 tab-cap PO BID 01/01/25 01/01/25 History 50 mg tablet (Laxative Stool Softener With Senna) sertraline 50 mg tablet 50 mg PO DAILY 01/01/25 01/01/25 History Exam Narrative Exam Narrative: 74 years old morbidly obese female patient without acute distress, no focal neurological deficit, clear lungs unlabored breathing, S1-S2 regular heart rate and rhythm, abdomen is large soft and nontender slightly discolored at healed wound site, no CVA tenderness, left BKA with mildred and sutures intact without drainage or redness remains warm and pink in color Psych Mental Status: mental status grossly normal Speech and Movement: speech and movement normal Mood: congruent mood Affect: sad Time Spent Time spent with Patient: >75 minutes Time was spent: preparing to see the patient(eg.review tests), obtaining and/or reviewing separately otained hiistory, ordering medications,tests, procedures, referring, communicating with other health resident care aid, indepentently interpreting results, counseling the patient and care coordination
--- NOTE | 2025-01-02 18:46 | W.PC.ACHO ---
Registration Status: ADM IN Primary Language: Preferred Language: Allergies No Known Allergies Allergy (Verified 01/02/25 06:03) Diet Orders Category Date Time Status Diabetes Consistent CHO/Heart Healthy [DIET] Nutrition 01/02/25 Dinner Active v v v v v v v v v Sending and/or Receiving Nurses: Please use comment section below to note any information pertinent to the patient hand-off not included above. Information / Comment: This nurse discharge patient to do an admission to swing bed, the patient will stay in the same room. Report received from:
[2025-01-02] MEDS: Magnesium Oxide 400 MG TAB PO (19:57)
[2025-01-02] MEDS: Sennosides/Docusate Sodium TAB 1 TAB PO (19:57)
[2025-01-02] MEDS: Atorvastatin 40 MG TAB PO (19:57)
[2025-01-02] MEDS: Metoprolol 50 MG TAB PO (19:57)
[2025-01-02] MEDS: Insulin Glargine 300 UNITS/3 ML PEN 18 UNITS SC (19:59)
[2025-01-02] MEDS: Patch Removal 1 EACH TP (20:01)
[2025-01-02 20:02] VITALS: BP 133/71; PULSE 82; RESP 18; TEMP 36.5; O2SAT 97
[2025-01-02] MEDS: Heparin 5,000 UNITS/ML VIAL 5000 UNITS SC (22:22)
[2025-01-03 05:55] VITALS: BP 128/79; PULSE 89; RESP 18; TEMP 35.9; O2SAT 98
[2025-01-03] MEDS: Heparin 5,000 UNITS/ML VIAL 5000 UNITS SC ×3 (06:29→22:22)
[2025-01-03] MEDS: Magnesium Oxide 400 MG TAB PO ×2 (08:20→20:19)
[2025-01-03] MEDS: Aspirin 81 MG CHEW CH (08:22)
[2025-01-03] MEDS: Sertraline 50 MG TAB PO (08:22)
[2025-01-03] MEDS: Lisinopril 2.5 MG TAB PO (08:22)
[2025-01-03] MEDS: Metoprolol 50 MG TAB PO ×2 (08:22→20:26)
[2025-01-03] MEDS: Insulin Aspart 300 UNITS/3 ML PEN SC ×3 (08:23→16:52)
[2025-01-03] MEDS: metFORMIN 500 MG TAB PO ×2 (08:23→16:52)
--- NOTE | 2025-01-03 09:13 | CMSA_ITS ---
Date of service: 01/03/25 Time of Service: 09:13 SB Psychosocial/Act. Assmt Hospital Admission Admission Date: 01/01/25 Admission From:: [facility] Diagnosis:: L RAJ Swing Bed Admission Swing Bed Admit Date:: 01/02/25 Swing Bed Level of Care: Level 1/SNF Social Supports PREVIOUS FUNCTIONAL STATUS/SOCIAL/FAMILY SUPPORTS:: Radha lives in a single family home with her son Boris in [facility]. Her son is very devoted and is determined to have Radha return home. She also has a daughter Yudith who lives in [place]. She is also involved and supportive but has 6 children and is very busy. Radha uses a wheelchair for mobility and was independent with transfers prior to her amputation. Her current goal is to regain that independence. When her stump is healed, Radha would like to be fitted with a prothesis and, hopefully, be able to walk again. The home is handicapped accessible with a ramp and shower chair, grab bars etc. Prior to Admission Living Arrangements/Environment Prior to Admission:: Single family home in [place] with son Boris. 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 No issues. Communication:: excellent communication skills Sensory Systems: wears glasses and dentures but hearing is unimpaired Behavior:: Appropriate. Open , friendly, easily engaged, good sense of humor Medical History PAST MEDICAL HISTORY/PAST SURGICAL HISTORY:: endometrial cancer. originally diagnosed 3 years ago. recent recurrence with initiation of chemo a few weeks ago - on hold now. General Health:: fair Admission Data Reason for Swing Bed Admission:: short term rehab to regain independence with transfers Discharge Plan:: Home with new home health services for RN, PT, OT and COUNTY COMMISSIONER. Assessment: Radha is a very pleasant woman who was transferred from [facility] for a SB-1 admission following a hospitalization for a Left AKA. She is able to transfer with assistance and her goal is to be able to transfer independently from chair or bed to W/C and back. She hopes to be able to be fitted for a prosthesis and walk again once her wound is sufficiently healed. Radha also has endometrial cancer. Her original diagnosis and treatment was in 2021 but she has recently had a recurrence. She had received 2 doses of chemotherapy before she developed the vascular issues necessitating the amputation. At this point Radha stated that she is not sure if she will pursue additional chemotherapy or not. She will postpone that decision until she has completed her rehabilitation. Hoop Machine Operator: Brianna Sinclair Date Assessment was completed:: 01/03/25
--- NOTE | 2025-01-03 09:14 | CMSCP_ITS ---
Date of service: 01/03/25 Time of Service: 09:14 Swingbed Plan of Care Activites/Discharge Plan of care: SWING BED PROGRAM ACTIVITIES/DISCHARGE PLAN OF CARE ACTIVITIES PLAN Date:01/02/25 Identified Need:Individualized activity plan Intervention/Plan:Radha would enjoy pet therapy, music therapy and Reiki when available. She also enjoys watching Tv and visiting with her son and with staff. Initials [facility] DISCHARGE PLAN Date:01/02/25 Identified Need:Safe discharge plan Intervention/Plan:Radha will be discharged home with her son Boris. She will have new home health services for RN, PT, OT and BRUSH HEAD MAKER. She idris follow up with her providers both locally and at [facility] and will transport [facility]. Initials: [facility]
--- NOTE | 2025-01-03 09:14 | CM.SWINGPC ---
Date of service: 01/03/25 Time of Service: 09:14 Swingbed Plan of Care Activites/Discharge Plan of care: SWING BED PROGRAM ACTIVITIES/DISCHARGE PLAN OF CARE ACTIVITIES PLAN Date:01/02/25 Identified Need:Individualized activity plan Intervention/Plan:Radha would enjoy pet therapy, music therapy and Reiki when available. She also enjoys watching Tv and visiting with her son and with staff. Initials [facility] DISCHARGE PLAN Date:01/02/25 Identified Need:Safe discharge plan Intervention/Plan:Radha will be discharged home with her son Boris. She will have new home health services for RN, PT, OT and ROLL MECHANIC. She idris follow up with her providers both locally and at [facility] and will transport via [facility]. Initials: [facility]
--- NOTE | 2025-01-03 09:50 | IN_ITS ---
PT Notes Visit Reasons: ambulatory dysfunction s/p Left AKA Inpatient/SWG Physical Therapy Evaluation Date: 01/03/25 Referring Doctor: Jessica Dey PT Orders: PT CONSULT: S/P ortho surgery, eval for assistive device, fall safety assessment Precautions: Fall. Standard. L Transfermoral residual limb precautions: No pillow under limb, keep hip straight. Avoid prolonged sitting. Maintain equal weight distribution while sitting. Patient Profile/Admitting Diagnosis: Patient is a 74-year-old female with stage 3 adenocarcinoma of uterus S/P surgery and chemotherapy supposedly reinitiating chemotherapy due to recent discovery of metastases to low back admitted today from [facility] for rehabiliataion following L transfermoral amputation on 12/20/2024 after a failed thrombectomy and 4 failed compartment fasciotomy resulting from acute ischemic left leg secondary to thrombus in her superficial L femoral artery and compromised tissue below the L knee. PMHX: All Active Problems (Updated 01/01/25 @ 23:37 by Dandy Noguera) Status post above-knee amputation of left lower extremity (Acute) Continuous tobacco abuse (Chronic) Adenocarcinoma of endometrium, stage 3 (Chronic) Depression (Chronic) Hyperlipidemia (Acute) Type 2 diabetes mellitus (Chronic) HTN (hypertension) (Chronic) PVD (peripheral vascular disease) (Chronic) Social History/Home Situation: Lives with son and son's family in a handicap-ac cessible residence. She does have one small step to get into her room that she will need to manage. Has a daughter who lives in another town. Independent with ambulation without a walker at home prior to amputation. Equipment Owned/DME: wheelchair, FWW, recliner Subjective: Pt states that she had an episode this morning where she was trying to transfer to her commode and her right leg gave out on her. She didn't go down but she came close. She hopes to be d/c'd home from here when medically cleared. She wants to return to being independent in her home. Objective: General Observation: well-appearing, sitting up comfortably in her chair Mental Status: A+Ox4 Pain: Denies pain but does report some weird sensations in her LLE Vital Signs: monitored by nursing ROM: Right Upper Extremity: WFL Left Upper Extremity: WFL Right Lower Extremity: WFL Left Lower Extremity: Able to demonstrate 10-0-100 for L hip ext/flex Strength: Right Upper Extremity: Grossly 4/5 Left Upper Extremity: Grossly 4/5 Right Lower Extremity: Grossly 4/5 Left Lower Extremity: Hip flexors 3-/5. Hip abductors 3-/5. Hip extensor 2-/5. Bed Mobility/Transfers: sit to stand w/CGA stand to sit w/CGA stand pivot transfer to chair w/CGA Standing tolerance: able to perform 3x1 min stands w/CGA today Gait: Deferred today Stairs: Deferred today Balance: Static Sitting: Good Dynamic Sitting: Good Static Standing: Fair Dynamic Standing: Fair Special Tests: Mobility Limitations Standardized Measure [facility] AM-PAC 6 clicks Basic Mobility Inpatient Short Form: Raw Score: 16 CMS Score: 40.78% deficit Informed Consent/Education: Patient instructed in purpose of PT consult and plan of care. Assessment: Pt was admitted for rehab from [facility] following recent L AKA. She is currently able to perform a stand pivot transfer with a RW and CGA. She was able to stand for 1 minute at a time x3 today with her RW. She is still unable to perform much hopping which is limiting her overall mobility as she will need that strength to ambulate any distance. She will also need to perform a small step to get into her house that will require her to hop. She has a supportive son who will help her as needed when returning home. They have the appropriate DMEs at home that she will need going forward. She will benefit from PT services while in the hospital to help develop a safe d/c plan. At this time, it is recommended that she receive home health services when returning home to further progress with her functional independence. Patient is assessed as a [x] Low 89841 complexity based on the following: History: Low Examination: Low Presentation: Low Decision Making: Low Goals: Goals: Goals X 2 weeks 1. Supine-Sit independent 2. Sit-Supine independent 3. Sit-Stand independent 4. Stand-Sit independent with FWW 5. Bed-Chair independent with FWW 6. Chair-Bed independent with FWW 7. Independent gait on level surface with use of FWW for at least 15 feet without report of pain nor dyspnea 8. Independent with wheelchair propulsion/management for distances beyond 15 feet for independent indoor mobility 9. Independent with home exercise program 10. Independent self-positioning while in bed or wheelchair to prevent flexion contracture on L hip Plan of Care/Treatment Plan: 1-2x/day, 7 days/week x 1 week. Plan of care has been reviewed with the RETINAL ANGIOGRAPHER providing the service under Physical Therapy direction. Initiate Physical Therapy intervention for strengthening, bed mobility, transfers, gait, stairs, balance training, use of assistive device. DISCHARGE RECOMMENDATIONS: Home with home health services following d/c [x] Home with home health services after being d/c'd from this facility TREATMENT CODE/TIME: Moshe Cunningham ([id number]) x1 - 25 min
--- NOTE | 2025-01-03 10:14 | W.INDIABCONS ---
Date of service: 01/03/25 Time of Service: 10:14 Diabetes Inpatient Consult Reason for Visit: consult - diabetes mgt/education DESCRIPTION/ASSESSMENT: Ms Duncan is a 74yo female here s/p left AKA at [facility] earlier this month related to ischemia. She also was undergoing chemo at the time before her recent hospitalization for stage 3 endometrial cancer. She is a current smoker, has a hx of DMII with A1C of 6.1% yesterday, HTN, HLD, PVD. She denies any concerns with chewing/swallowing, n/v/d/c. Tolerating diet (consistent CHO/heart healthy order). She denies low glucose at home. Home med list shows 18u glagine and sliding scale humalog at meals but Radha states she does not do mealtime insulin and injects 50units of glargine q HS. She takes mtformin BID. She checks her glucose once daily at fasting and states it is in 130's usually. Glucose 234 at breakfast today. ordered for 18 units glargine and moderate sliding scale for mealtime corrections. Lives with son on [email or web address] and he works 12 hour shifts. when he isn't home she will eat leftovers mainly. Drinks coffee with splenda and coke zero and some water. Dislikes many veggies. Estimated energy needs 1994-2400kcals (20-25kcal/kg), 75g protein 1.5g per kg of ideal BW INTERVENTION: Will provide 2pkts Enrique protein/wound healing supplement as she was on this at [facility] prior to transfer. With glycemic control being pretty close to target as evidenced by current A1c, pt can continue her regimen and consider reintroducing mealtime insulin if wanting to gain a little more control if it gets elevated instead of going up in long acting insulin over 50u daily. PLAN: will monitor intake, weight, glucose and nutrition-related labs, desire/need for further education/instruction Time Spent in Nutritional Counseling and Treatment: 10 min
--- NOTE | 2025-01-03 13:01 | PCNE_ITS ---
Date of service: 01/03/25 Time of Service: 14:17 History of Present Illness Narrative: Brianna was seen in her room, she was alone at the time of the visit. She reports that she was first diagnosed with endometrial cancer 09/2021, she underwent surgery and chemo and went into remission. She went on to have severe back pain and had CT scan to find that the cancer had spread to her lower spine. She has had 2 infusions since she came out of remission. She reports that she had a reaction to chemo, she felt hot and had leg pain. They kept her overnight and she went home the next day. She continued to have leg pain and increasing difficulty with mobility until she was unable to walk and WC bound. She ended up back in the [facility] and subsequently went to the OR for amputation. She has a high tolerance for pain. She believes that this is why she ended up with amputation of her LLE. Her priority for now is healing her leg. She is not sure what the plan is for oncology treatments. Discussed how she felt about resuming treatments, she feels she needs to meet with oncology for more information. Reviewed that since the cancer has spread, it is not curable but may be treatable. Reviewed CODE STATUS briefly. Reviewed the risk of fracture, pain, etc, especially in the setting of new spinal mets. Continue to discuss. For now, she will remain a FULL CODE. She lives with her son Bebeto Viera (Bob) in [place]. Boris helps her with whatever she needs. She was independent with personal are before but she thinks she will need more help now. She does not think Boris would want to provider personal care/bathing. She thinks she has [facility] that names Boris but she is not sure where it is. New form completed today. Boris's number is [phone]. She has other support people including her neighbor, Marbin, who comes over to let the dog out. Boris does the shopping. She is hoping HH with help with bathing, etc, she does not have anyone to help with personal care. She has a daughter, Yudith who lives in [place]. Yudith is busy with her 6 children and cannot really help but she visits occasionally. She has 5 great grandkids. 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 Assessment and Plan Assessment and plan (1) Status post above-knee amputation of left lower extremity: Status: Acute Assessment and plan: Hospitalized on at [facility] 12/20/2024 with subsequent left AKA d/t advanced tissue damage from prolonged hypoxia after thrombus and occlusion of her left superficial femoral artery. (2) Continuous tobacco abuse: Status: Chronic (3) Adenocarcinoma of endometrium, stage 3: Status: Chronic Assessment and plan: With new lower spine mets after being in remission for 9 or 10 months. She had received 2 treatments when LLE thrombus and limb ischemia occurred. She is not sure what the plan is for oncology care. The priority is to heal her leg. She understands that cancer that has spread is stage IV and is not curable but may be treatable. She will f/u with oncology. (4) Depression: Status: Chronic Assessment and plan: On home sertraline (5) Hyperlipidemia: Status: Acute Assessment and plan: On home statin (6) Type 2 diabetes mellitus: Status: Chronic (7) HTN (hypertension): Status: Chronic (8) PVD (peripheral vascular disease): Status: Chronic Assessment and plan: No previous Hx of PVD Hypercoagulability in the setting of her recurrent CA in addition to nicotine dependence, hyperlipidemia and hypertension might have contributed to her acute thrombus formation in December 2024 ASA daily Heparin SC for DVT prophylaxis until 01/20/2025 (9) Palliative care patient: Status: Acute Assessment and plan: She will benefit from ongoing Palliative care. She is open to Palliative. If she is still at the hospital next week, I will see her, otherwise she should be seen in 1 month or so. She is not sure if she will need HV or if she will be able to come into the office. (10) Advanced care planning/counseling discussion: Status: Acute Assessment and plan: Reviewed GOC. She has had a lot happen in a short time frame. Her priority is to heal her leg. Reviewed CODE STATUS. She will benefit from ongoing discussion. She remains a full code now. She named her son, Boris to be her HCA, paperwork completed. She lives with Boris and he is a good support person for her. I will see her again next week if she is still in the hospital. If she is discharged, she should be seen for outpatient f/u in 1 month or so. Review of Systems Narrative: Per HPI PFSH All Active Problems (Updated 01/03/25 @ 16:34 by Keke Carlos NP) Advanced care planning/counseling discussion (Acute) Palliative care patient (Acute) Discharge planning issues (Acute) Status post above-knee amputation of left lower extremity (Acute) Continuous tobacco abuse (Chronic) Adenocarcinoma of endometrium, stage 3 (Chronic) Depression (Chronic) Hyperlipidemia (Acute) Type 2 diabetes mellitus (Chronic) HTN (hypertension) (Chronic) PVD (peripheral vascular disease) (Chronic) Social History Smoking/Tobacco Use Status: Current-Occasional Tobacco Type: cigarettes Years smoked: 15 Tobacco: How many years used: 15 Smoking risk assessment performed?: Yes Alcohol Intake: former Drug use: Never Substance use type: does not use Housing: house Do you feel safe at home: Yes Do you feel safe in your relationship?: Yes Exam Narrative Exam Narrative: General: very pleasant, well-nourished, older female, sitting up in the recli ner, she appears mildly uncomfortable, leaning forward in the chair. HEENT: normocephalic, atraumatic, EOMI, mmm Neck: supple Respiratory: respirations appear even and unlabored at rest. Ext: moves extremities freely, L AKA noted. Results Last Vital Signs Temp 35.9 C L 01/03/25 05:55 Pulse 89 01/03/25 05:55 Resp 18 01/03/25 05:55 BP 128/79 01/03/25 05:55 Pulse Ox 98 01/03/25 05:55 Labs Labs: Laboratory Results - last 24 hr 01/03/25 11:46 Troponin I Cancelled Time Spent Time Spent with Patient Time Spent(min): 125
--- NOTE | 2025-01-03 13:30 | CHAPLAIN ---
Radha was up in the chair when I visited. She shared some personal history, telling me that she's originally from [place], [place] and currently lives with her son in [place], since she received her cancer diagnosis and was having treatments. Her son has made some renovations to his house to make things for accessible for Radha who had an AKA at [facility]. Radha said when she is home, she usually sits on her son's front porch and watches the traffic on [address]. 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 I will continue to visit.
--- NOTE | 2025-01-03 13:38 | OTIE_ITS ---
Occupational Therapy Notes Inpatient Occupational Therapy SWG B1 Evaluation Date: 01/03/25 Referring Doctor: Jessica Dey OT Orders: Extended stay weakness Precautions: Fall, Standard, Full PATIENT PROFILE/ADMITTING DIAGNOSIS: Pt is a 74 year old female who was admitted to [facility] for an extended stay for weakness post a above the knee amputation of (L) LE and is currently under SWG B1 status. Past Medical History: All Active Problems (Updated 01/01/25 @ 23:37 by Dandy Noguera) Status post above-knee amputation of left lower extremity (Acute) Continuous tobacco abuse (Chronic) Adenocarcinoma of endometrium, stage 3 (Chronic) Depression (Chronic) Hyperlipidemia (Acute) Type 2 diabetes mellitus (Chronic) HTN (hypertension) (Chronic) PVD (peripheral vascular disease) (Chronic) Social History/Home Situation: Pt is a 74 year old female who lives with her son. She notes that she does not drive. She gave this up when she was undergoing Chemotherapy and had cataracts which did not allow her to renew her license at the time. She notes that she was (I) with her ADL/IADL routines. She has had HH in the past to (A) with wound care on her stomach and is interested in this again when she returns home. Her son provided support for her in the home including laundry, cooking at times and (A) as needed. She has a tub shower but notes that her son called today to inform her of a shower bench seat that he was getting which she is unsure how it will work but notes that she does feel that this will be helpful. She has adaptive equipment [place] [facility] including a sock aide, dressing stick, bowel movement wiper and amf mechanic. She is very receptive to any ideas or equipment that may be helpful for her. FWW as needed for functional mobility. Equipment owned/DME: Please refer to social hx above. SUBJECTIVE: Pt was sitting in chair when OT arrived. She is agreeable to OT consult and reports that she is looking to get better with functional mobility. OBJECTIVE: General Observation: Pleasant, IV in UE, missing above the knee (L) amputation. Mental Status: A&OX4 Pain: no c/o pain with OT consult. ROM: RUE AROM WFL L UE AROM WFL STRENGTH: RUE Shoulder flexion 4/5, bicep 5/5, tricep 4/5, pallet stone inserter is strong and symmetrical LUE Shoulder flexion 4/5, bicep 5/5, tricep 4+/5, pallet stone inserter is strong and symmetrical FUNCTIONAL MOBILITY/ADLS: Transfers with (A) d/t LOB and adjustment to (L) above the knee amputation BATHING sitting in chair with max (A) Set up (I) UE/LE bathing with ideal technique, max (A) back DRESSING mod (I) LE, pt notes that she has not tried a shirt but is able to [facility] and [facility] gown GROOMING (I) seated, next step progression is to perform at sink with MUD JACK NOZZLEMAN pt notes that her leg is weak today and she had an episode of it giving out today prior to OT arrival. TOILETING on comode with (I) toileting hygiene, requires (A) with functional mobility to and from commode not performed at todays session. EATING (I) seated in chair BALANCE: Static sitting Normal Dynamic Sitting Normal SPECIAL TESTS: Daily Activity Limitations Standardized Measure [facility] AM -PAC ?6 clicks? Daily Activity Inpatient Short Form: Raw score: 21 Standardized score: 44.27 CMS score: 32.79% INFORMED CONSENT/EDUCATION: Pt instructed in purpose of OT Consult and plan of care. ASSESSMENT: Patient is a 74-year-old female referred to occupational therapy services with diagnosis of extended stay for weakness post a above the knee amputation of (L) LE. Patient presents with clinical signs and symptoms consistent with dx, as demonstrated by the following impairment level findings/functional limitations: Impairments in ADL/IADL and leisure impairments, decreased functional mobility required for ADL performance, decreased functional activity tolerance, impairments in standing tolerance for ADLs at sink d/t LOB. AMPAC score 21 Patient is assessed as a Moderate 29899 complexity based on the following: History: see above Examination: see functional limitations as noted above Presentation: evolving Decision Making: AMPAC score 21 GOALS Goals x1 week 1. Transfers (I) 2. Dressing seated (I) 3. Bathing standing at sink (I) with chair for breaks 4. Toileting on toilet (I) 5. Eating (I) PLAN OF CARE/TREATMENT PLAN: 1x/day, 3-5 days/ week x 1week Initiate Occupational Therapy Services for bathing, dressing, grooming, toileting, eating, transfer training. DISCHARGE RECOMMENDATIONS OT recommends that pt return home with ervices when medically cleared per MD. TREATMENT TIME/MINUTES/CODES 35352, 20943 38 minutes Genny Garcia OTR/L [facility] [place], [place]
--- NOTE | 2025-01-03 15:59 | PTTR_ITS ---
PT Notes Visit Reasons: ambulatory dysfunction s/p Left AKA Date: 01/03/2025 PRECAUTIONS: Fall, Standard, Activity as tolerated. SUBJECTIVE: Pt in recliner when approached for therapy this afternoon, pt agreed to participating with therapy session. OBJECTIVE:? PAIN: denies VITALS: monitored by nursing Therapeutic Activities 39729: Direct one-on-one instruction in dynamic activities to improve functional performance. ?? BED MOBILITY/TRANSFERS? sit to stand w/CGA stand to sit w/CGA stand pivot transfer to chair w/CGA Provided skilled cues and instruction on performance and technique throughout. Neuromuscular Re-education 47852: Activities that facilitate re-education of movement balance, posture, coordination, and proprioception or kinesthetic sense, requiring skilled tactile and verbal cues Exercises/techniques: ?Sit to stand with static standing 1min x 10 ASSESSMENT:?Improved tolerance to standing activity, pt did not complain of pain during session PLAN: Continue with balance training, global strengthening and general conditi oning for improved safety, mobility and activity tolerance until pt is ready for DC. TREATMENT CODE/TIME: 12088w8, 08943p1 30mins (3:20-3:50pm)
[2025-01-03 19:08] VITALS: BP 127/113; PULSE 83; RESP 14; TEMP 36.7; O2SAT 99
[2025-01-03] MEDS: Atorvastatin 40 MG TAB PO (20:19)
[2025-01-03] MEDS: Insulin Glargine 300 UNITS/3 ML PEN 18 UNITS SC (22:22)
[2025-01-04] MEDS: Acetaminophen 325 MG TAB 650 MG PO (00:19)
[2025-01-04] MEDS: Heparin 5,000 UNITS/ML VIAL 5000 UNITS SC ×3 (05:44→21:06)
[2025-01-04 07:51] VITALS: BP 102/56; PULSE 73; RESP 16; TEMP 35.8; O2SAT 99
[2025-01-04] MEDS: Lisinopril 2.5 MG TAB PO (08:25)
[2025-01-04] MEDS: Aspirin 81 MG CHEW CH (08:25)
[2025-01-04] MEDS: metFORMIN 500 MG TAB PO ×2 (08:25→16:49)
[2025-01-04] MEDS: Magnesium Oxide 400 MG TAB PO ×2 (08:25→20:32)
[2025-01-04] MEDS: Sertraline 50 MG TAB PO (08:25)
[2025-01-04] MEDS: Insulin Aspart 300 UNITS/3 ML PEN SC ×3 (08:26→16:48)
--- NOTE | 2025-01-04 13:15 | PHA.REVIEW2 ---
Pharmacy Admission Review Admission Clinical Review Admission Pharmacy Review: Advanced care planning/counseling discussion (Acute) Palliative care patient (Acute) Discharge planning issues (Acute) Status post above-knee amputation of left lower extremity (Acute) Hyperlipidemia (Acute) No Known Allergies Allergy (Verified 01/02/25 06:03) Resuscitation Status Full Code Height 5 ft 1 in Weight 99.7 kg Pharmacy Admission Review Renal Dosing Medications needing adjustments: Reviewed (CrCl 55.04 mL/min) List of meds needing interventions: Current medications are okay Anticoagulation DVT Prophylaxis: Reviewed Medications: Heparin (q8h) Opiate Usage Evaluate Pain Scale/Pains Meds: Reviewed (oxycodone 5mg q4h PRN - no doses given) Scheduled Bowel Reg ordered if on Opiates?: Yes (Senna/docusate + Miralax) Relevant Labs Electrolytes, C-Reactive P, ESR: Reviewed (No new labs for today) DM Control DM Control: Finger Stick Blood Glucose 151 1150 Finger Stick Blood Glucose 151 1150 Finger Stick Blood Glucose 192 0812 Finger Stick Blood Glucose 192 0812 DM Control: Reviewed Insulin Dosing, Diabetic Medication: Has orders for SS insulin and glargine 18 units at bedtime Cardiac Review Cardiac Review: Troponin I Cancelled 01/03/25 11:46 BP, HR, EF%: Reviewed (BP 102/56, HR WNL) List meds needing interventions: Has orders for lisinopril 2.5mg daily and metoprolol 50mg BID QTc Review QTc: Reviewed (No EKG on file) IV to PO Switch IV Medications: Reviewed Home Meds Home Med List reviewed: Reviewed Relevent Home Meds Not ordered & why?: miconazole powder Enrique with collagen - changed to patients own order, inpatient pharmacist yesterday called nurse to see if this could be brought in. Current Meds Current Medication Order Review: Reviewed
--- NOTE | 2025-01-04 13:30 | PTTR_ITS ---
PT Notes Visit Reasons: ambulatory dysfunction s/p Left AKA Physical Therapy Inpatient Treatment Note Date: 01/04/2025 Precautions: Fall. Standard. L Transfermoral residula limb precautions: No pillow under limb, keep hip straight. Avoid prolonged sitting. Maintain equal weight distribution while sitting. Subjective: Pleasant and cooperative. Expressed that since the bed does not go down as much to allow her to safely get in, she needed 3 nursing staff to help her safely back into bed last night. She did not feel good about it after. Agreeable to just use the STEDY lift for bedside chair to bed transfers at night for safety. Son Boris came in longterm through the session today. Objective: General Observation: Patient seated on bedside recliner. High BMI. Surgical incisions intact without any drainaae seen. Swelling in L residual limb has started to jordy in comparison to when she was last seen. Mental Status: Alert and oriented as to person, place, time, and purpose. Able to pay attention, focus, and respond appropriately. Pain: 2/10 in the L transfemoral residula limb Vital Signs: Closely monitored by nursing staff L Transfemoral residual limb characteristics: L long transfemoral residual limb bulbous and swollen with well-approximated incision having 12 stitches and 24 mildred along its 21 cm length; another vertical medial femoral thrombectomy incision has 18 mildred along its 12 cm length. Residual limb length from iliac crest to tip 48 cm. Mid thigh circumference at 68.4 cm. Bed Mobility/Transfers: Minimal cueing provided for use of B hands as needed for support, movement sequence, AD management, and posture to reduce fall risk and minimize pain report Rolling stand by assist while pulling from arm rest of bariatric bedside recliner Sit to stand stand by assist with FWW Stand to sit stand by assist with FWW Reclining chair to bed minimal assist with FWW. Patient partially at edge of bed and unable to safely place gluteal area fully onto edge due to bed height Bed to reclining chair with minimal assist of PT and PERSONAL CARE HOME ADMINISTRATOR with FWW Gait: Instructed patient with level surface ambulation of 5 small, gentle steps/hops + 5 small, gentle steps/hops requiring minimal assist with front-wheeled walker. Cueing given for posture, correct technique with pivoting and gentle hopping, efficient weight distribution onto walker for safety and stability. THERA ACT: Guided patient with safe positioning while on bedside recliner before L residual limb exercises: Reclined back rest all the way back and tunred patient onto her R side to perform-- L hip flexion x 10, L hip abduction x 10, L hip extension Rolled patient back to low semi-rausch's position (backrest could not go flat) and with R knee bent and and R foot flat on floor-- bridging x 10 Stairs: Not done, deferred Balance: Static Sitting: Normal Dynamic Sitting: Normal Static Standing: Fair Dynamic Standing: Fair Assessment: Activity tolerance improved with pain level decreasing. Gaining more confidence with transfers and short distance ambulation performance with no episode of buckling observed. bariatric bed does not go down low enough to have patient manage sstand to sit and sit to supine safely, nursing staff and patient were advised to use STEDY lift for safe transfer back to bed tonight. Session today focused on increasing mastery with L AKA residula limb exercises, safe positioning, and strategies to safely transfer back to bed. Patient is able to safely manage bed to wheelchair and bed to bedside recliner transfer with just stand by assist of caregiver. Plan of Care/Treatment Plan: 1-2x/day, 7 days/week x 1 week. Continue with functional mobility training progression, ambulation distance increase to at least 15-30 feet, L hip contracture prevention, and AD(walker and wheelchair) management. Patient may mobilize along [facility] hallways using wheelchair for at most 2 hours each time in the AM and in the PM and then transfer back to bedside recliner with assiatnce and use of FWW. DISCHARGE RECOMMENDATIONS: PT TREATMENT CODE/TIME: 59383 x 38 minutes for 3 units (13:30-14:14).
[2025-01-04 20:30] VITALS: BP 111/59; PULSE 99; RESP 18; TEMP 36.1; O2SAT 98
[2025-01-04] MEDS: Insulin Glargine 300 UNITS/3 ML PEN 18 UNITS SC (20:31)
[2025-01-04] MEDS: Metoprolol 50 MG TAB PO (20:32)
[2025-01-04] MEDS: Atorvastatin 40 MG TAB PO (20:32)
[2025-01-04] MEDS: oxyCODONE 5 MG TAB PO (20:32)
[2025-01-05] MEDS: Heparin 5,000 UNITS/ML VIAL 5000 UNITS SC ×3 (06:05→21:28)
[2025-01-05 07:47] VITALS: BP 118/63; PULSE 75; RESP 17; TEMP 36.7; O2SAT 99
[2025-01-05 08:00] VITALS: BP 125/83; PULSE 98; RESP 17; TEMP 36.8; O2SAT 97
[2025-01-05] MEDS: Metoprolol 50 MG TAB PO ×2 (08:57→20:06)
[2025-01-05] MEDS: Sertraline 50 MG TAB PO (08:57)
[2025-01-05] MEDS: metFORMIN 500 MG TAB PO ×2 (08:57→16:47)
[2025-01-05] MEDS: Aspirin 81 MG CHEW CH (08:57)
[2025-01-05] MEDS: Lisinopril 2.5 MG TAB PO (08:57)
[2025-01-05] MEDS: Insulin Aspart 300 UNITS/3 ML PEN SC ×2 (08:58→12:10)
[2025-01-05] MEDS: Magnesium Oxide 400 MG TAB PO ×2 (08:58→20:06)
--- NOTE | 2025-01-05 15:07 | PT.INTREAT ---
PT Notes Visit Reasons: ambulatory dysfunction s/p Left AKA Physical Therapy Inpatient Treatment Note Date: 01/05/2025 Precautions: Fall. Standard. L Transfermoral residula limb precautions: No pillow under limb, keep hip straight. Avoid prolonged sitting. Maintain equal weight distribution while sitting. Subjective: Happy about how much gains she has achieved so far, thrilled about being able to get around the [employer] hallway on her won and interact with staff and other walking patients and with staff alike. Willing to work as much as her body will let her to get better. Objective: General Observation: Patient seated on bedside recliner. High BMI. Surgical incisions intact without any drainaae seen. Swelling in L residual limb has started to jordy in comparison to when she was last seen. Mental Status: Alert and oriented as to person, place, time, and purpose. Able to pay attention, focus, and respond appropriately. Pain: 2/10 in the L transfemoral residula limb Vital Signs: Closely monitored by nursing staff L Transfemoral residual limb characteristics: L long transfemoral residual limb bulbous and swollen with well-approximated incision having 12 stitches and 24 mildred along its 21 cm length; another vertical medial femoral thrombectomy incision has 18 mildred along its 12 cm length. Residual limb length from iliac crest to tip 48 cm. Mid thigh circumference at 68.4 cm. Bed Mobility/Transfers: Minimal cueing provided for use of B hands as needed for support, movement sequence, AD management, and posture to reduce fall risk and minimize pain report Rolling stand by assist while pulling from arm rest of bariatric bedside recliner Sit to stand stand by assist with FWW Stand to sit stand by assist with FWW Reclining chair to bed minimal assist with FWW. Patient partially at edge of bed and unable to safely place gluteal area fully onto edge due to bed height Bed to reclining chair with minimal assist of PT and [employer] with FWW Gait: Instructed patient with level surface ambulation of 15 small, gentle steps/hops and then another 15 small, gentle steps/hops requiring contact guard assist with front-wheeled walker. Cueing given for posture, correct technique with pivoting and gentle hopping, efficient weight distribution onto walker for safety and stability. THERA ACT: Attempted the farthest walk she could do today with guidance on L foot placement, weight distribution through B UE, and posture. Assisted patient with bedside recliner to wheelchair transfer after walking activity to allow for functional range of motion with B UE propelling wheels and R LE helping with maneuvering around med surg hallway. Stairs: Not done, deferred Balance: Static Sitting: Normal Dynamic Sitting: Normal Static Standing: Fair Dynamic Standing: Fair Assessment: Activity tolerance improved with pain level decreasing. Gaining more confidence with transfers and level surface ambulation with no episode of buckling observed. Session today focused on safely increasing mileage with walking, self-pacing, weight distribution, and AD management. Patient is independent with maneuvering wheelchair in med surg hallway up to 2 hours. STEDY lift for recliner to bed transfer for safety until patient is strong enough to scoot/push herselff onto bed efficiently and safely. Able to do some of the seated exercises on her own now. Plan of Care/Treatment Plan: 1-2x/day, 7 days/week x 1 week. Continue with functional mobility training progression, ambulation distance increase to at least 15-30 feet, L hip contracture prevention, and AD(walker and wheelchair) management. Patient may mobilize along med surg hallways using wheelchair for at most 2 hours each time in the AM and in the PM and then transfer back to bedside recliner with assiatnce and use of FWW. DISCHARGE RECOMMENDATIONS: PT TREATMENT CODE/TIME: 69441 x 24 minutes for 2 units (15:07-15:31).
[2025-01-05 20:04] VITALS: BP 109/70; PULSE 95; RESP 20; TEMP 36.4; O2SAT 98
[2025-01-05] MEDS: Atorvastatin 40 MG TAB PO (20:05)
[2025-01-05] MEDS: oxyCODONE 5 MG TAB PO (20:06)
[2025-01-05] MEDS: Insulin Glargine 300 UNITS/3 ML PEN 18 UNITS SC (20:06)
[2025-01-06] MEDS: Heparin 5,000 UNITS/ML VIAL 5000 UNITS SC ×3 (05:56→22:12)
[2025-01-06 07:24] VITALS: BP 104/55; PULSE 82; RESP 16; TEMP 36.8; O2SAT 97
[2025-01-06] MEDS: Metoprolol 50 MG TAB PO ×2 (07:50→19:51)
[2025-01-06] MEDS: metFORMIN 500 MG TAB PO ×2 (07:50→17:00)
[2025-01-06] MEDS: Insulin Aspart 300 UNITS/3 ML PEN SC ×2 (07:50→17:00)
[2025-01-06] MEDS: Lisinopril 2.5 MG TAB PO (07:50)
[2025-01-06] MEDS: Aspirin 81 MG CHEW CH (07:50)
[2025-01-06] MEDS: Sertraline 50 MG TAB PO (07:50)
[2025-01-06] MEDS: Magnesium Oxide 400 MG TAB PO ×2 (07:50→19:45)
[2025-01-06] MEDS: Nystatin POWDER 15 GM JAR TP ×2 (09:44→19:52)
--- NOTE | 2025-01-06 13:29 | PT.INTREAT ---
PT Notes Visit Reasons: ambulatory dysfunction s/p Left AKA Physical Therapy Inpatient Treatment Note Date: 01/05/2025 Precautions: Fall. Standard. L Transfermoral residula limb precautions: No pillow under limb, keep hip straight. Avoid prolonged sitting. Maintain equal weight distribution while sitting. Subjective: She reports that her right knee sometimes gives out. Objective: Rx completed in PT gym Gait training (99529 x 1): Sit to stand transfer with CG assist of 1 Ambulated 5 ft x 1 with FWW and CG of 1 Ambulated 10 ft with FWW and CG of 1 Therapeutic procedures (55459x[1]): Instruction in therapeutic exercises to develop strength and endurance, range of motion and flexibility. Ther ex: Access Code: [email or web address] URL: [email or web address] Date: 01/06/2025 Prepared by: Viridiana Logan Exercises - Seated Single Arm Elbow Flexion with Resistance - 2 x daily - 1 sets - 10 reps - Seated Shoulder Row with Resistance Anchored at Feet - 2 x daily - 1 sets - 10 reps Pt was instructed in above exercises and given yellow theraband to use (I)ly Ther ex this session: Bicep curl with yellow thera band x 10 Row with yellow thera band x 10 Seated: Right LE ankle pump x 10 knee ext x10 hip flexion x 10 Assessment: Pt did well with ambulation today without any episodes of right knee buckling. Plan of Care/Treatment Plan: 1-2x/day, 7 days/week x 1 week. Continue with functional mobility training progression, ambulation distance increase to at least 15-30 feet, L hip contracture prevention, and AD(walker and wheelchair) management. Patient may mobilize along [employer] hallways using wheelchair for at most 2 hours each time in the AM and in the PM and then transfer back to bedside recliner with assiatnce and use of FWW. DISCHARGE RECOMMENDATIONS: PT TREATMENT CODE/TIME: 089483 1 unit (15 minutes) 24397 1 unit (10 minutes) Total rx time 25 minutes 13:00-13:25
[2025-01-06 15:51] VITALS: BP 112/72
[2025-01-06] MEDS: oxyCODONE 5 MG TAB PO (19:45)
[2025-01-06] MEDS: Atorvastatin 40 MG TAB PO (19:46)
[2025-01-06] MEDS: Insulin Glargine 300 UNITS/3 ML PEN 18 UNITS SC (19:46)
[2025-01-06 19:50] VITALS: BP 122/60; PULSE 97; RESP 18; TEMP 36.3; O2SAT 97
[2025-01-07] MEDS: Heparin 5,000 UNITS/ML VIAL 5000 UNITS SC ×3 (06:08→22:13)
[2025-01-07 06:50] LABS: HCT 26.8 % (36.0-46.0); HGB 8.5 g/dL (11.2-15.7); MCH 29.2 pg (27.0-33.0); MCHC 31.7 % (32.0-36.0); MCV 92 fL (80-95); MPV 9.6 fL (8.0-11.0); Platelet Count 175 10^3/uL (130-400); RBC 2.91 10^6/uL (3.93-5.22); RDW 17.4 % (11.7-14.6); RDW-SD 58.5 fL; WBC 4.18 10^3/uL (4.4-10.8)
[2025-01-07 07:43] VITALS: BP 116/66; PULSE 89; RESP 18; TEMP 36.8; O2SAT 97
[2025-01-07] MEDS: Insulin Aspart 300 UNITS/3 ML PEN SC ×3 (08:01→16:51)
[2025-01-07] MEDS: Sertraline 50 MG TAB PO (08:05)
[2025-01-07] MEDS: Lisinopril 2.5 MG TAB PO (08:05)
[2025-01-07] MEDS: Aspirin 81 MG CHEW CH (08:05)
[2025-01-07] MEDS: Metoprolol 50 MG TAB PO ×2 (08:05→19:57)
[2025-01-07] MEDS: Nystatin POWDER 15 GM JAR TP ×2 (08:05→19:59)
[2025-01-07] MEDS: Magnesium Oxide 400 MG TAB PO ×2 (08:05→19:57)
[2025-01-07] MEDS: metFORMIN 500 MG TAB PO ×2 (08:05→16:52)
--- NOTE | 2025-01-07 09:05 | PT.INTREAT ---
PT Notes Visit Reasons: ambulatory dysfunction s/p Left AKA Inpatient Physical Therapy Treatment Note [facility] Date: 01/07/25 PRECAUTIONS:Standard SUBJECTIVE: Doing well. OBJECTIVE: Therapeutic Activities (95754g[1]): Direct one-on-one instruction in dynamic activities to improve functional performance. ? Therapeutic Exercises (04623o[1]): Direct one-on-one instruction in therapeutic exercises to develop strength, endurance, range of motion and flexibility. ? Exercises ? Seated row YTB x 20 Seated biceps YTB x 15 Seated shoulder horz abd x 5 LAQ x 15 Ankle pumps x 20 Seated W/C pushing herself around small loop. Ambulation ? Assistive Device: FWW ? Weight bearing: FWB with R LE with FWW Assist: CGA? Distance:? 15ft ? Deviation: [] ? Provided skilled instruction in proper exercise performance ASSESSMENT:? Motivated for PT. PLAN: Cont as per PT POC. TREATMENT CODE/TIME: 8:55-9:10 9:50-10 TA TP DISCHARGE RECOMMENDATION: []
--- NOTE | 2025-01-07 09:58 | PDOC.CMPRO ---
Date of service: 01/08/25 Time of Service: 09:58 Care Management Progress Note Progress Note Text Progress Note Text: CM scheduled a follow up appointment for Radha with Vascular Surgery at [facility] [place] for 01/09/25 at 2:30 pm. Radha will either transport with her son Boris or CM will coordinate transportation with [facility]. Discharge Potential Discharge Needs: PCP F/U Appt, Surgical F/U Appt and Other (Oncology) Anticipated Barriers to Discharge: None Identified Patient/Family Education Needs: Review discharge instructions, discuss Ask Me Three Transportation: Private vehicle Plan: Anticipate Radha will be discharged home with new home health services for RN, PT, OT and PHARMACOGNOSY TEACHER when medically cleared. She will follow up with her community providers and plan of care and transport with family. CM will follow and continue to support discharge planning efforts. Social Determinants of Health Screening Social Determinants of health last assessed in clinic: 01/10/25 Will the Patient Participate in the Screening?: Yes Do you worry about having a steady place to live?: no Problems where you live: no known problems In the past 12 months, have you had to go without electric, gas, oil or water in your home?: no 1. Within the past 12 months, we worried whether our food would run out before we got money to buy more.: Never true 2. Within the past 12 months, the food we bought just didn't last and we didn't have money to get more.: Never true Has lack of transportation kept you from medical appointments or from doing things needed for daily living?: no Has anyone in your life made you feel unsafe or unsupported?: no How hard is it for you to pay for the very basics like food, housing, medical care, and heating? Would you say it is:: Not hard at all Do you want help finding or keeping work or a job?: I do not need or want help If for any reason you need help with day-to-day activities such as bathing, preparing meals, shopping, managing finances, etc., do you get the help you need?: I get all the help I need How often do you feel lonely or isolated from those around you?: Rarely Do you speak a language other than Estonian at home?: No Health Related Social Needs Health related social needs: feeling lonely/isolated (Z60.8)
[2025-01-07] MEDS: Acetaminophen 325 MG TAB 650 MG PO ×2 (14:56→22:12)
--- NOTE | 2025-01-07 15:06 | PT.INTREAT ---
PT Notes Visit Reasons: ambulatory dysfunction s/p Left AKA Inpatient Physical Therapy Treatment Note [facility] Date: 01/07/25 SUBJECTIVE: Radha states that she is doing ok. She sees the surgeon on and is anxious to hear what he has to say. OBJECTIVE: []? PAIN: mild phantom pain VITALS: ?[place] [facility] [place] Therapeutic Activities (89835w2): Direct one-on-one instruction in dynamic activities to improve functional performance. ? seated in recliner ? Sit-stand: SBA? Stand-sit: SBA ? Provided skilled cues and instruction on performance and technique throughout. GAIT? Assistive Device: FWW? Weight bearing: full R LE (L AKA) Assist: CGA? Distance:?25' x2? Deviation: one sitting rest break x 30/40 sec. ?performed her ex routine independently. She took a few laps around hospital seated in wc ASSESSMENT:? tolerated session well. C/o low back feeling tired during ambulation. Sitting rest helps PLAN: will continue to progress strength and functional mobility to tolerance. TREATMENT CODE/TIME: 10 min
[2025-01-07] MEDS: Atorvastatin 40 MG TAB PO (19:57)
[2025-01-07] MEDS: Insulin Glargine 300 UNITS/3 ML PEN 18 UNITS SC (19:58)
[2025-01-07] MEDS: oxyCODONE 5 MG TAB PO (22:13)
[2025-01-07 22:42] VITALS: BP 109/56; PULSE 63; RESP 16; TEMP 36.5; O2SAT 97
[2025-01-08] MEDS: Heparin 5,000 UNITS/ML VIAL 5000 UNITS SC ×3 (05:48→22:15)
[2025-01-08 06:51] LABS: Anion Gap 7.9 mmol/L (3-11); BUN 43 mg/dL (7-18); CO2 26.1 mmol/L (21.0-32.0); Calcium 9.2 mg/dL (8.5-10.1); Chloride 104 mmol/L (98-107); Estimated GFR 67.92 (mL/min/1.73m2); Glucose 153 mg/dL (74-106); Potassium 4.3 mmol/L (3.5-5.1); Sodium 138 mmol/L (136-145)
[2025-01-08 08:04] VITALS: BP 98/75; PULSE 81; TEMP 36.1; O2SAT 99
[2025-01-08 08:27] VITALS: BP 112/60; PULSE 74; RESP 18
[2025-01-08] MEDS: Insulin Aspart 300 UNITS/3 ML PEN SC ×2 (08:29→12:08)
[2025-01-08] MEDS: Magnesium Oxide 400 MG TAB PO ×2 (08:30→20:07)
[2025-01-08] MEDS: Metoprolol 50 MG TAB PO ×2 (08:30→20:08)
[2025-01-08] MEDS: Sennosides/Docusate Sodium TAB 1 TAB PO (08:30)
[2025-01-08] MEDS: Sertraline 50 MG TAB PO (08:30)
[2025-01-08] MEDS: Lisinopril 2.5 MG TAB PO (08:30)
[2025-01-08] MEDS: metFORMIN 500 MG TAB PO ×2 (08:30→16:55)
[2025-01-08] MEDS: Aspirin 81 MG CHEW CH (08:30)
[2025-01-08] MEDS: Nystatin POWDER 15 GM JAR TP ×2 (08:31→20:08)
--- NOTE | 2025-01-08 11:45 | PTTR_ITS ---
PT Notes Visit Reasons: ambulatory dysfunction s/p Left AKA Physical Therapy Inpatient Treatment Note Date: 01/08/2025 Precautions: Fall. Standard. L Transfermoral residual limb precautions: No pillow under limb, keep hip straight. Avoid prolonged sitting. Maintain equal weight distribution while sitting. Subjective: Anxious about transport [place] [facility] [place], unsure if son will drive or if another mode of assisted transfer was available. Wonders if she gets home tomorrow after the appoinment. ANA Reed clarified patient's questions accordingly after session. Objective: General Observation: L transfermoral residual limb intact. Patient seated on bedside recliner. High BMI. Surgical incisions intact without any drainaae seen. Swelling in L residual limb continues to decrease. Mental Status: Alert and oriented x 4 Pain: 2-3/10 in the L transfemoral residula limb Vital Signs: Closely monitored by nursing staff Bed Mobility/Transfers: Minimal cueing provided for use of B hands as needed for support, movement sequence, AD management, and posture to reduce fall risk and minimize pain report Rolling stand by assist while pulling from arm rest of bariatric bedside recliner Sit to stand stand by assist with FWW Stand to sit stand by assist with FWW Gait: Instructed patient with level surface ambulation of 25 + 25 small, gentle steps/hops requiring stand by assist with front-wheeled walker. Cueing given for posture, correct technique with pivoting and gentle hopping, and efficient weight distribution onto walker for safety and stability. THERA ACT: Reclined back rest all the way back and turned patient onto her R side to [facility]-- L hip flexion x 10, L hip abduction x 10, L hip extension Rolled patient back to low semi-rausch's position (backrest could not go flat) and with R knee bent and and R foot flat on floor-- bridging x 10 Stairs: Not done, deferred Balance: Static Sitting: Normal Dynamic Sitting: Normal Static Standing: Fair Dynamic Standing: Fair Assessment: Activity tolerance improved with pain level decreasing. Gaining more confidence with transfers and level surface ambulation with no episode of buckling observed. Session today focused on safely increasing mileage with walking, self-pacing, weight distribution, and AD management. Patient is independent with maneuvering [facility] up to 2 hours. STEDY lift for recliner to bed transfer for safety until patient is strong enough to scoot/push herself onto bed efficiently and safely. Plan of Care/Treatment Plan: 1-2x/day, 7 days/week x 1 week. Continue with functional mobility training progression, ambulation distance increase to at least 15-30 feet, L hip contracture prevention, and AD(walker and wheelchair) management. Patient may mobilize along [facility] hallways using wheelchair for at most 2 hours each time in the AM and in the PM and then transfer back to bedside recliner with assiatnce and use of FWW. --Perform stairs as tolerated in the next session. DISCHARGE RECOMMENDATIONS: PT TREATMENT CODE/TIME: 49905 x 18 minutes for 1 unit (11:45-12:03).
[2025-01-08] MEDS: Acetaminophen 325 MG TAB 650 MG PO (13:26)
--- NOTE | 2025-01-08 15:29 | CHAPLAIN ---
Radha was up in the chair when I visited. She said she's been transferred to [facility] tomorrow to meet with vascular medical staff. She isn't sure if she'll be transferred back her or be discharged. It's been a month since she's been home, to her son's house in [place] and she would like to get back there. I will continue to visit if she returns to [facility].
[2025-01-08] MEDS: Atorvastatin 40 MG TAB PO (20:07)
[2025-01-08] MEDS: Insulin Glargine 300 UNITS/3 ML PEN 18 UNITS SC (20:08)
[2025-01-08 20:12] VITALS: BP 121/63; PULSE 91
[2025-01-08] MEDS: oxyCODONE 5 MG TAB PO (22:18)
[2025-01-09] MEDS: Heparin 5,000 UNITS/ML VIAL 5000 UNITS SC ×2 (06:09→21:03)
[2025-01-09 07:41] VITALS: BP 118/71; PULSE 76; RESP 16; TEMP 35.9; O2SAT 98
[2025-01-09] MEDS: metFORMIN 500 MG TAB PO ×2 (09:00→19:35)
[2025-01-09] MEDS: Magnesium Oxide 400 MG TAB PO ×2 (09:00→19:30)
[2025-01-09] MEDS: Metoprolol 50 MG TAB PO ×2 (09:00→19:30)
[2025-01-09] MEDS: Insulin Aspart 300 UNITS/3 ML PEN SC ×3 (09:05→19:30)
[2025-01-09] MEDS: Lisinopril 2.5 MG TAB PO (09:07)
[2025-01-09] MEDS: Aspirin 81 MG CHEW CH (09:08)
[2025-01-09] MEDS: Sertraline 50 MG TAB PO (09:08)
[2025-01-09] MEDS: Nystatin POWDER 15 GM JAR TP (09:11)
[2025-01-09] MEDS: Acetaminophen 325 MG TAB 650 MG PO (11:34)
--- NOTE | 2025-01-09 11:51 | PGE_ITS ---
Date of Service Date of service: 01/09/25 Time of Service: 11:51 Assessment and Plan Assessment and plan (1) Status post above-knee amputation of left lower extremity: Status: Acute Assessment and plan: Hospitalized on at [facility] 12/20/2024 with subsequent left AKA d/t advanced tissue damage from prolonged hypoxia after thrombus and occlusion of her left superficial femoral artery. PRN acetaminophen for pain PT and OT consult completed - ongoing daily PT - improved WC mobnility and transfers L AKA wound stump is dry clean and dry- mildred and sutures still on - Consult notes [facility] vascular opt f/u: today 01/09/25 at 14:30 F/u with Dr. Xavier Rawls [facility] surgeon with following recommendations (2) Continuous tobacco abuse: Status: Chronic Assessment and plan: No further nicotine dependence (3) Adenocarcinoma of endometrium, stage 3: Status: Chronic Assessment and plan: Patient reporting lower spine mets findings s/p remission from primary site Was getting chemo when LLE thrombus and limb ischemia occured No chemo at this time - patient reporting that oncologist, Dr Nemo Locke - had pause chemo while the wound is healing. Patient uncertain about wanting chemo therapy Had an appointment for Jan 22 2025 at 13:[address] Locke @ Gynecology Oncology at [facility] - d/c note stating that provider to call patient to reschedule -Discussed with JACKIE Sinclair with plans to determine f/u date Palliative consult completed : please read notes. Patient is agreeable to ongoing palliative care (4) Depression: Status: Chronic Assessment and plan: Continue home dose sertraline No acute exacerbation Representative Personal Service consult for spiritual support (5) Hyperlipidemia: Status: Acute Assessment and plan: Continue home dose statin (6) Type 2 diabetes mellitus: Status: Chronic Assessment and plan: Ongoing Gluc AC and HS with SSI coverage (7) Anemia: Status: Chronic Assessment and plan: Chronic as low as 8.7 & 23.5 in 2022 H&H 8.5 & 26.8 on 01/07/25 from 9.4 & 29.3 01/02/25- no thrombocytopenia MCV 92 will continue to monitor Stool for occult blood (8) HTN (hypertension): Status: Chronic Assessment and plan: Continue home medicine regimen Remains stable (9) PVD (peripheral vascular disease): Status: Chronic Assessment and plan: No report pointing to previous Hx of PVD Hypercoagulability in the setting of her recurrent CA in addition to nicotine dependence, hyperlipidemia and hypertension might have contributed to her acute thrombus formation in December 2024 Ongoing ASA daily Continue heparin SC for DVT prophylaxis until 01/20/2025 (10) Discharge planning issues: Status: Acute Assessment and plan: Patient lives with her son and plan to return to that living situation. Most likely to be discharged home with services early next week Palliative care : Opt f/u Discussed with Dr. Torres Subjective Subjective Patient reports: no new complaints, feels better, tolerating liquids well, tolerating a regular diet, voiding w/o difficulty and bowel movement; denies diarrhea, blood in stool, nausea, vomiting, shortness of breath or fever Exam Narrative Exam Narrative: 74 years old morbidly obese female patient appearing older than stated age , without acute distress, A&O X4, neurologically intact, non-icteric sclera, clear lungs unlabored breathing, S1-S2 regular heart rate and rhythm, abdomen is large soft and nontender with old healed scar, left BKA with mildred and sutures intact without drainage or redness remains warm and pink in color, RLE + pedal pulse, cap refill< 3 sec Psych Mental Status: mental status grossly normal Speech and Movement: speech and movement normal Mood: congruent mood Affect: sad to flat Objective Last Vital Signs Temp 35.9 C L 01/09/25 07:41 Pulse 76 01/09/25 07:41 Resp 16 01/09/25 07:41 BP 118/71 01/09/25 07:41 Pulse Ox 98 01/09/25 07:41 Time Spent with Patient Time Spent with Patient: >50 minutes Time was spent: preparing to see the patient(eg.review tests), obtaining and/or reviewing separately otained hiistory, ordering medications,tests, procedures, referring, communicating with other health health care recruiter, indepentently interpreting results, counseling the patient, care coordination and other
--- NOTE | 2025-01-09 12:39 | PTTR_ITS ---
PT Notes Visit Reasons: ambulatory dysfunction s/p Left AKA Inpatient Physical Therapy Treatment Note [facility] Date: 01/09/2025 SUBJECTIVE: Radha states that she is doing ok. She sees the surgeon today at [facility]. OBJECTIVE: []? PAIN: mild phantom pain VITALS: ?[facility] [facility] [place] Therapeutic Activities (29955x3): Direct one-on-one instruction in dynamic activities to improve functional performance. ? seated in recliner ? Sit-stand: SBA? at FWW x 5 trials? Stand-sit: SBA ? at FWW x 5 trials? Provided skilled cues and instruction on performance and technique throughout. GAIT? Assistive Device: FWW? Weight bearing: full R LE (L AKA) Assist: CGA? Distance:?25' x2? Deviation: one sitting rest break x 30/40 sec. ? ASSESSMENT:? tolerated session well. C/o low back feeling tired during ambulation. Sitting rest helps to reduce pain. PLAN: will continue to progress strength and functional mobility to tolerance. TREATMENT CODE/TIME:3833-2619/ 65108
--- NOTE | 2025-01-09 14:44 | OT.INNT ---
Occupational Therapy Notes 01/09/25 OT attempted to work with pt, she is out of hospital at this time for an external appt. Genny Garcia, OTR/L
[2025-01-09] MEDS: Atorvastatin 40 MG TAB PO (19:30)
[2025-01-09] MEDS: Insulin Glargine 300 UNITS/3 ML PEN 18 UNITS SC (19:31)
[2025-01-09] MEDS: oxyCODONE 5 MG TAB PO (21:03)
[2025-01-10] MEDS: Heparin 5,000 UNITS/ML VIAL 5000 UNITS SC ×3 (05:26→21:21)
[2025-01-10 07:36] VITALS: BP 119/69; PULSE 83; RESP 16; TEMP 36.1; O2SAT 98
[2025-01-10] MEDS: metFORMIN 500 MG TAB PO ×2 (08:07→17:26)
[2025-01-10] MEDS: Metoprolol 50 MG TAB PO ×2 (08:07→19:58)
[2025-01-10] MEDS: Lisinopril 2.5 MG TAB PO (08:07)
[2025-01-10] MEDS: Sertraline 50 MG TAB PO (08:07)
[2025-01-10] MEDS: Insulin Aspart 300 UNITS/3 ML PEN SC ×2 (08:07→17:17)
[2025-01-10] MEDS: Nystatin POWDER 15 GM JAR TP (08:08)
[2025-01-10] MEDS: Aspirin 81 MG CHEW CH (08:08)
[2025-01-10] MEDS: Magnesium Oxide 400 MG TAB PO ×2 (08:08→19:58)
[2025-01-10] MEDS: Acetaminophen 325 MG TAB 650 MG PO (08:22)
--- NOTE | 2025-01-10 11:20 | PT.INPN ---
PT Notes Visit Reasons: ambulatory dysfunction s/p Left AKA Physical Therapy Swing Bed level I Progress Note Date: 01/02/2025 Dates of service: 01/03/2025 through 01/10/2025 Precautions: Fall. Standard. L Transfermoral residula limb precautions: No pillow under limb, keep hip straight. Avoid prolonged sitting. Maintain equal weight distribution while sitting. Subjective: Stated that [facility] advised her that her discharge is dependent on how safe it is as deemed by the team here at [facility], that they apparently did not see any hindrances as of the current time. [place] were removed pre patine t but the stitches remain. Looking forward to going home on Monday per recommendation of CM/Nurse Brianna if everything stays the same medically. Denied pain, headache, and chest pain throughout session. Enjoys working with PT a lot. Objective: General Observation: Patient seated on bedside recliner. High BMI. Seward to residual limb amputation area and thrombectomy area now removed, stitches remain. L transfermoral residual limb intact and dry without any drainage seen. Swelling in L residual limb almost resolved. Mental Status: Alert and oriented as to person, place, time, and purpose. Able to pay attention, focus, and respond appropriately. Pain: None reported Vital Signs: Closely monitored by nursing staff L Transfemoral residual limb characteristics: L long transfemoral residual limb bulbous and swollen with well-approximated incision having 12 stitches and 24 mildred along its 21 cm length; another vertical medial femoral thrombectomy incision has 18 mildred along its 12 cm length. Residual limb length from iliac crest to tip 48 cm. Mid thigh circumference at 68.4 cm. ROM: Right Upper Extremity: Shoulder Flexion WFL. Shoulder abduction WFL. Elbow flexion WFL. Wrist flexion WFL. Functional opening and closing of hand WFL. Left Upper Extremity: Shoulder Flexion WFL. Shoulder abduction WFL. Elbow flexion WFL. Wrist flexion WFL. Functional opening and closing of hand WFL. Right Lower Extremity: Hip flexion WFL. Hip abduction WFL. Knee flexion WFL. Ankle dorsiflexion to neutral only. Ankle plantarflexion WFL. Left Lower Extremity: Hip flexion 0-100 degrees. Hip abduction 0-45 degrees. L hip extension 15 degrees only. Strength: Right Upper Extremity: Shoulder flexors 4-/5. Shoulder abductors 4-/5. Elbow flexors 4-/5. Elbow extensors 4-/5. Cigarette Package Examiner strong. Left Upper Extremity: Shoulder flexors 4-/5. Shoulder abductors 4-/5. Elbow flexors 4-/5. Elbow extensors 4-/5. Cigarette Package Examiner strong. Right Lower Extremity: Hip flexors 4-/5. Hip abductors 4-/5. Knee flexors 4-/5. Knee extensors 4-/5. Ankle dorsiflexors 3-/5. Ankle plantarflexors 4-/5. Left Lower Extremity: Hip flexors 3-/5. Hip abductors 3-/5. Hip extensor 3/5. Bed Mobility/Transfers: Minimal cueing provided for use of B hands as needed for support, movement sequence, AD management, and posture to reduce fall risk and minimize pain report Rolling modified independent using the bed rail [place] to sit modified independent Sit to stand stand by assist with FWW Stand to sit stand by assist with FWW Bed to bedside recliner stand by assist with FWW THERA EX: Reclined back rest all the way back and turned patient onto her R side to perform-- L hip flexion x 10, L hip abduction x 10, L hip extension Rolled patient back to low semi-rausch's position (backrest could not go flat) and with R knee bent and and R foot flat on floor-- bridging x 10 Gait: Instructed patient with level surface ambulation of 25 + 25 small, gentle steps/hops requiring stand by assist with front-wheeled walker. Cueing given for posture, correct technique with pivoting and gentle hopping, and efficient weight distribution onto walker for safety and stability. Stairs: Not performed Balance: Static Sitting: Normal Dynamic Sitting: Normal Static Standing: Fair Dynamic Standing: Fair Special Tests: Mobility Limitations Standardized Measure [facility] AM-PAC 6 clicks Basic Mobility Inpatient Short Form: Raw Score: 21 CMS Score: 29% deficit Informed Consent/Education: Patient was instructed in purpose of continuing with plan of care and is greeable to proceed with established PT POC to achieve personal goals. Assessment: Patient is a 74-year-old female with stage 3 adenocarcinoma of uterus S/P surgery and chemotherapy supposedly reinitiating chemotherapy due to recent discovery of metastases to low back admitted today from [facility] for rehabiliataion following L transfermoral amputation on 12/20/2024 after a failed thrombectomy and 4 failed compartment fasciotomy resulting from acute ischemic left leg secondary to thrombus in her superficial L femoral artery and compromised tissue below the L knee. Activity tolerance improved with pain level decreasing. Gaining more confidence with transfers and level surface ambulation with no episode of buckling observed this week. Session today focused on safely increasing mileage with walking, self-pacing, weight distribution, and AD management. Patient is independent [facility] 2 hours. Bed has been changed into a lower one which has allowed more independence with chair to bed transfers. The next few days will need to focus on stair negotiation using B rails for support and on HEP instruction in preparation for discharge home on Monday with continued HH PT services. Patient continues to present with clinical signs and symptoms consistent with current/admitting diagnoses that have resulted to mobility limitations, gait instability, generalized weakness, and overall ADL decline as demonstrated by the following impairment level findings: 1. Decreased strength to L hip and trunk major muscle groups 2. Impaired standing balance 3. Impaired activity tolerance 4. Limitation of joint range of motion in L hip as above 5. L transfemoral residual limb Impairments are contributing to the following functional limitations: 1. Difficulty with ambulation without assistive device and physical assistance 2. Increased completion time for mobility ADL performance 3. Increased risk for falls 4. Unequal weight distribution over R LE with ambulation Patient is assessed as a 68003 complexity based on the following: History: 74-year-old female with past medical history as indicated above Examination: Demonstrable impairment in strength, balance, and mobility level with underlying impairments and functional limitations as exhibited above as well as deficit score of 29% utilizing the [facility] Mobility Inpatient Short Form Presentation: Evolving Decision Makin moderate complexity Goals: Goals X 2 weeks 1. Supine-Sit independent MET 2. Sit-Supine independent MET 3. Sit-Stand independent NOT MET, CONTINUE 4. Stand-Sit independent with FWW NOT MET, CONTINUE 5. Bed-Chair independent with FWW NOT MET, CONTINUE 6. Chair-Bed independent with FWW NOT MET, CONTINUE 7. Independent gait on level surface with use of FWW for at least 15 feet without report of pain nor dyspnea NOT MET, CONTINUE 8. Independent with wheelchair propulsion/management for distances beyond 15 feet for independent indoor mobility MET 9. Independent with home exercise program NOT MET, CONTINUE 10. Independent self-positioning while in bed or wheelchair to prevent flexion contrature on L hip MET Plan of Care/Treatment Plan: 1-2x/day, 7 days/week x 1 week. Plan of care has been reviewed with the POULTRY PROCESS WORKER providing the service under Physical Therapy direction. Initiate Physical Therapy intervention for pain management as needed, strengthening, bed mobility, transfers, gait, stairs, balance training, and use of assistive device. --Train with stair negotiation and HEP prior to D/C on Monday DISCHARGE RECOMMENDATIONS: PT TREATMENT CODE/TIME: 24441 x 17 minutes for 1 unit, 43751 x 15 minutes for 1 unit (11:20-11:52). Plan of Care/Treatment Plan: 1-2x/day, 7 days/week x 1 week. Continue with functional mobility training progression, ambulation distance increase to at least 15-30 feet, L hip contracture prevention, and AD(walker and wheelchair) management. Patient may mobilize along [facility] hallways using wheelchair for at most 2 hours each time in the AM and in the PM and then transfer back to bedside recliner with assiatnce and use of FWW. --Perform stairs as tolerated in the next session. DISCHARGE RECOMMENDATIONS: PT TREATMENT CODE/TIME: 81094 x 18 minutes for 1 unit (11:45-12:03).
--- NOTE | 2025-01-10 13:15 | OT.INNT ---
Occupational Therapy Notes 01/10/25 OT attemped to work with pt who wanted hold for a while this afternoon d/t fatigue. Genny Garcia, OTR/L
--- NOTE | 2025-01-10 13:39 | PCPN_ITS ---
Date of service: 01/10/25 Time of Service: 13:39 Assessment and Plan Assessment and plan (1) Status post above-knee amputation of left lower extremity: Status: Acute Assessment and plan: Hospitalized at [facility] on 12/20/2024 with subsequent left AKA d/t advanced tissue damage from prolonged hypoxia after thrombus and occlusion of her left superficial femoral artery. Followed by vascular, had f/u visit yesterday at [facility]. (2) Continuous tobacco abuse: Status: Chronic (3) Adenocarcinoma of endometrium, stage 3: Status: Chronic Assessment and plan: With new lower spine mets after being in remission for 9 or 10 months. She had received 2 treatments when LLE thrombus and limb ischemia occurred. She is not sure what the plan is for oncology care. The priority is to heal her leg. She understands that cancer that has spread is stage IV and is not curable but may be treatable. She will f/u with oncology. She does not want the same treatment again. She wants more information on why this happened. (4) Depression: Status: Chronic Assessment and plan: On home sertraline (5) Hyperlipidemia: Status: Acute Assessment and plan: On home statin (6) Type 2 diabetes mellitus: Status: Chronic (7) HTN (hypertension): Status: Chronic (8) PVD (peripheral vascular disease): Status: Chronic Assessment and plan: No previous Hx of PVD Hypercoagulability in the setting of her recurrent CA in addition to nicotine dependence, hyperlipidemia and hypertension might have contributed to her acute thrombus formation in December 2024 ASA daily Heparin SC for DVT prophylaxis until 01/20/2025 (9) Palliative care patient: Status: Acute Assessment and plan: She will benefit from ongoing Palliative care. She is open to Palliative. Will ask the office to contact her at home next week to set up f/u visit for 1 month. (10) Advanced care planning/counseling discussion: Status: Acute Assessment and plan: Reviewed GOC. She has had a lot happen in a short time frame. Her priority is to heal her leg. Reviewed CODE STATUS. She will benefit from ongoing discussion. She remains a full code now. She named her son, Boris to be her HCA, paperwork on file. She lives with Boris and he is a good support person for her. Subjective Subjective Interval history since last seen: Brianna was seen in her room for palliative f/u. She reports that her pain is well managed. She usually takes oxycodone at HS, which helps. She is taking APAP PRN, she took it today prior to PT. She states she feels that admitting pain is a sign of weakness. She states, it is embarrassing to admit that you have pain. She feels she is doing okay mentally with everything that his going on. She feels excited about getting her prosthetic leg. She is also looking forward to getting home. She is a little nervous but feels she will be okay. She does not think it will be that different because she was having difficulty with mobility due to her leg prior to presenting to the hospital. She lives on 1 floor and feels she will be able to get around without difficulty. In regard to the cancer, she states she wants to worry about her leg first. She would not want the same treatment again. She is afraid of having another reaction. She wants more information on why happened so it can be avoided in the future. She plans to f/u with oncology to discuss options once she gets through the acute phase with her leg. She thinks she is going home next week on Monday. Reviewed HCA paperwork, she named her son last week. Reviewed CODE status, she wishes to remain full code at this point. Exam Narrative Exam Narrative: General: very pleasant, well-nourished, older female, sitting up in the wheelchair. She is alert and oriented. she does not appear to be in distress. HEENT: normocephalic, atraumatic, EOMI, mmm Neck: supple Respiratory: respirations appear even and unlabored at rest. Ext: moves extremities freely, L AKA noted. Objective Last Vital Signs Temp 36.1 C L 01/10/25 07:36 Pulse 83 01/10/25 07:36 Resp 16 01/10/25 07:36 BP 119/69 01/10/25 07:36 Pulse Ox 98 01/10/25 07:36
--- NOTE | 2025-01-10 14:20 | PT.INTREAT ---
PT Notes Visit Reasons: ambulatory dysfunction s/p Left AKA Date: 01/10/2025 PRECAUTIONS: Fall, Standard, Activity as tolerated. SUBJECTIVE: Pt in when approached for therapy this afternoon, pt agreed to participating with therapy session. OBJECTIVE:? PAIN: denies VITALS: monitored by nursing Therapeutic Activities 89869: Direct one-on-one instruction in dynamic activities to improve functional performance. ?? BED MOBILITY/TRANSFERS? sit to stand SBA stand to sit SBA stand pivot transfer to chair SBA Provided skilled cues and instruction on performance and technique throughout. GAIT? Assistive Device: FWW? Weight bearing: full R LE (L AKA) Assist: CGA? Distance:?10' x 4 ? Deviation: hop Rest break in between distance ? ASSESSMENT:?Improved tolerance to standing activity, pt did not complain of pain during session, styed in recliner post session. PLAN: Continue with balance training, global strengthening and general conditioning for improved safety, mobility and activity tolerance until pt is ready for DC. TREATMENT CODE/TIME: 63994x4, 39072n6 25mins (2:00-2:25pm)
--- NOTE | 2025-01-10 14:45 | CHAPLAIN ---
Radha told me about her trip to [facility] yesterday to meet with vascular staff. She said she had mildred out, but the stitches are still in on her left leg amputation. Her son, my protector, met her at [facility] for her appointment. Radha traveled by [facility], so than and to wait a couple of hours for another patient to finish up their appointment. Radha said she hopes to be going home, maybe early next week, to her son's home in [place]. She said that [facility] staff said the discharge decision was up to [facility] vascular staff and the [facility] vascular staff said it was up to [facility] staff. She had a conversation with Palliative Care ECONOMIC CONSULTANT Keke Brito today about code status, possible treatments for her cancer.
[2025-01-10 19:55] VITALS: BP 125/79; PULSE 96; RESP 20; TEMP 36.6; O2SAT 97
[2025-01-10] MEDS: Atorvastatin 40 MG TAB PO (19:58)
[2025-01-10] MEDS: oxyCODONE 5 MG TAB PO (19:59)
[2025-01-10] MEDS: Insulin Glargine 300 UNITS/3 ML PEN 18 UNITS SC (19:59)
[2025-01-11] MEDS: Heparin 5,000 UNITS/ML VIAL 5000 UNITS SC ×3 (05:55→22:02)
[2025-01-11] MEDS: Insulin Aspart 300 UNITS/3 ML PEN SC ×2 (08:08→16:54)
[2025-01-11] MEDS: Aspirin 81 MG CHEW CH (08:09)
[2025-01-11] MEDS: Metoprolol 50 MG TAB PO ×2 (08:09→20:21)
[2025-01-11] MEDS: Lisinopril 2.5 MG TAB PO (08:09)
[2025-01-11] MEDS: Sertraline 50 MG TAB PO (08:09)
[2025-01-11] MEDS: metFORMIN 500 MG TAB PO ×2 (08:09→16:55)
[2025-01-11] MEDS: Magnesium Oxide 400 MG TAB PO ×2 (08:13→20:20)
[2025-01-11] MEDS: Nystatin POWDER 15 GM JAR TP (08:13)
--- NOTE | 2025-01-11 13:14 | PT.INTREAT ---
PT Notes Visit Reasons: ambulatory dysfunction s/p Left AKA Inpatient Physical Therapy Treatment Note [facility] Date: 01/11/25 PRECAUTIONS: L AKA SUBJECTIVE: I just want to make sure I don't fall. OBJECTIVE: ? PAIN: no pain complaints today VITALS: monitored by nursing ? Therapeutic Exercises (61870b5): Direct one-on-one instruction in therapeutic exercises to develop strength, endurance, range of motion and flexibility. ? Exercises: ? LAQs x10 Seated heel raises x10 sit to stands x5 stand pivot transfers back and forth from chair to wheelchair x3 BED MOBILITY/TRANSFERS? Sit-stand: SBA ? Stand-sit: SBA ? Bed-Chair: SBA? Chair-bed: SBA ? Provided skilled instruction in proper exercise performance Provided skilled manual cues to facilitate proper muscle recruitment and/or form: ASSESSMENT:? Radha is doing very well and only requiring SBA for all transfers. She is showing much improved independence and should soon be able to return home safely with the support of her son. She understands the necessary safety measures including locking her wheelchair and reaching for the chair before sitting. She will continue to benefit from PT services to progress her as tolerated. PLAN: Continue transfer training TREATMENT CODE/TIME: Ther Ex x1 (57140) - 20 min DISCHARGE RECOMMENDATION: D/c home with home health PT
[2025-01-11 20:13] VITALS: BP 134/76; PULSE 96; RESP 20; TEMP 36.4; O2SAT 97
[2025-01-11] MEDS: Insulin Glargine 300 UNITS/3 ML PEN 18 UNITS SC (20:19)
[2025-01-11] MEDS: Sennosides/Docusate Sodium TAB 1 TAB PO (20:20)
[2025-01-11] MEDS: Atorvastatin 40 MG TAB PO (20:20)
[2025-01-11] MEDS: oxyCODONE 5 MG TAB PO (20:20)
[2025-01-12] MEDS: Heparin 5,000 UNITS/ML VIAL 5000 UNITS SC ×3 (05:21→21:23)
[2025-01-12 07:31] VITALS: BP 115/73; PULSE 79; RESP 18; TEMP 36.4; O2SAT 99
[2025-01-12] MEDS: Insulin Aspart 300 UNITS/3 ML PEN SC ×2 (07:42→17:31)
[2025-01-12] MEDS: Metoprolol 50 MG TAB PO ×2 (07:43→19:56)
[2025-01-12] MEDS: Sennosides/Docusate Sodium TAB 1 TAB PO ×2 (07:43→19:56)
[2025-01-12] MEDS: Lisinopril 2.5 MG TAB PO (07:43)
[2025-01-12] MEDS: Aspirin 81 MG CHEW CH (07:43)
[2025-01-12] MEDS: Sertraline 50 MG TAB PO (07:43)
[2025-01-12] MEDS: metFORMIN 500 MG TAB PO ×2 (07:43→17:30)
[2025-01-12] MEDS: Magnesium Oxide 400 MG TAB PO ×2 (07:43→19:56)
[2025-01-12] MEDS: Nystatin POWDER 15 GM JAR TP (08:41)
--- NOTE | 2025-01-12 13:28 | PT.INTREAT ---
PT Notes Visit Reasons: ambulatory dysfunction s/p Left AKA Inpatient Physical Therapy Treatment Note [facility] Date: 01/12/25 PRECAUTIONS: fall precautions SUBJECTIVE: I thought it was about time you would be coming. OBJECTIVE: ? PAIN: Denies pain today VITALS: monitored by nursing? Therapeutic Exercises (58053g7): Direct one-on-one instruction in therapeutic exercises to develop strength, endurance, range of motion and flexibility. ? Exercises: LAQs x10, seated marching x10, seated calf raises x10sit to stands x5, SL stance 5x5 sec holds w/o UE support, SL standing calf raises x10 ?? ASSESSMENT:? Pt becoming independent with transferring. She was a full participant in the exercise session today and did well. Appropriate d/c plan continues to be home with home health. PLAN: Exercise progressions, SL balance progressions TREATMENT CODE/TIME: Ther Ex (17545) x1 - 20 min DISCHARGE RECOMMENDATION: Home with home health
[2025-01-12] MEDS: Acetaminophen 325 MG TAB 650 MG PO (14:20)
[2025-01-12 19:53] VITALS: BP 122/61; PULSE 88; RESP 18; TEMP 36.4; O2SAT 97
[2025-01-12] MEDS: Atorvastatin 40 MG TAB PO (19:56)
[2025-01-12] MEDS: oxyCODONE 5 MG TAB PO (19:56)
[2025-01-12] MEDS: Insulin Glargine 300 UNITS/3 ML PEN 18 UNITS SC (19:57)
[2025-01-13] MEDS: Heparin 5,000 UNITS/ML VIAL 5000 UNITS SC ×3 (05:47→22:05)
[2025-01-13 07:58] VITALS: BP 110/69; PULSE 74; RESP 17; TEMP 36.8; O2SAT 98
[2025-01-13] MEDS: Acetaminophen 325 MG TAB 650 MG PO (08:46)
[2025-01-13] MEDS: Aspirin 81 MG CHEW CH (08:47)
[2025-01-13] MEDS: Sennosides/Docusate Sodium TAB 1 TAB PO ×2 (08:47→20:13)
[2025-01-13] MEDS: Sertraline 50 MG TAB PO (08:47)
[2025-01-13] MEDS: metFORMIN 500 MG TAB PO ×2 (08:47→17:07)
[2025-01-13] MEDS: Polyethylene Glycol 3350 17 GM PACKET PO (08:47)
[2025-01-13] MEDS: Lisinopril 2.5 MG TAB PO (08:47)
[2025-01-13] MEDS: Metoprolol 50 MG TAB PO ×2 (08:47→20:10)
[2025-01-13] MEDS: Magnesium Oxide 400 MG TAB PO ×2 (08:47→20:10)
[2025-01-13] MEDS: Insulin Aspart 300 UNITS/3 ML PEN SC (08:48)
[2025-01-13] MEDS: Nystatin POWDER 15 GM JAR TP ×2 (08:51→20:10)
--- NOTE | 2025-01-13 09:35 | PT.INTREAT ---
PT Notes Visit Reasons: ambulatory dysfunction s/p Left AKA Date: 01/13/2025 PRECAUTIONS: Fall, Standard, Activity as tolerated. SUBJECTIVE: Pt in recliner when approached for therapy this morning, pt agreed to participating with therapy session. pt in recliner when approached for therapy in the afternoon, agreed to participating with therapy session OBJECTIVE:? PAIN: denies VITALS: monitored by nursing Therapeutic Activities 30485: Direct one-on-one instruction in dynamic activities to improve functional performance. ?? BED MOBILITY/TRANSFERS? sit to stand SBA stand to sit SBA stand pivot transfer to chair SBA Provided skilled cues and instruction on performance and technique throughout. GAIT? Assistive Device: FWW? Weight bearing: full R LE (L AKA) Assist: SBA? Distance:?10' x 4 (am), 10' x 5 (pm)? Deviation: hop Rest break in between distance ? ASSESSMENT:?Improved tolerance to standing activity, pt did not complain of pain during session, stayed in recliner post session. PLAN: Continue with balance training, global strengthening and general conditioning for improved safety, mobility and activity tolerance until pt is ready for DC. TREATMENT CODE/TIME: 84366a4, 39472y9 25mins (8:20-8:45am) 24579z3, 65404k7 25mins (1:15-1:40pm)
--- NOTE | 2025-01-13 14:47 | NT_ITS ---
Occupational Therapy Notes 01/13/25 OT attempted to work with pt who would like to hold until after 3. Unfortunately OT is not here at that time. She is (I) with her bathing routines. OT gave pt bathing materials which she notes she will perform at 3 (I). OT will attempt to resume services tomorrow. Genny Garcia, OTR/[facility] [place], [place]
--- NOTE | 2025-01-13 15:40 | CMPROGNOTE_ITS ---
Date of service: 01/13/25 Time of Service: 15:40 Care Management Progress Note Progress Note Text Progress Note Text: Radha has been up in the chair for most of the day. She had a visitor for a good while, and is now in her wheelchair doing laps in the sing[address] way. Radha has been very pleasant in our interactions. Radha is planning for discharge home tomorrow. Her son will be in early tomorrow to bring her home. CM spoke with Boris earlier today. He stated that he needs to come early for his mom as he will have to go to work. He had some concerns about his mom staying home alone and was under the impression that HH would be in same day, and for extended periods. CM explained that same day is not possible, and explained a bit more what that would look like. The visitor that was in earlier today will stay with Radha tomorrow. HH should be in on 01/15 or at the latest 01/16. Radha has asked that her meds be sent to the pharmacy today, so they will be ready for her tomorrow morning. This was passed along to the provider. Referral was sent to [facility] today to help with options counseling. Discharge Potential Discharge Needs: PCP F/U Appt (La Nena Valle MD [facility] 01/24 at 10:30am) and Other (oncology - phone visit with Nemo Locke MD 01/22 at 1pm) Anticipated Barriers to Discharge: None Identified Patient/Family Education Needs: Review discharge instructions, discuss Ask Me Three Transportation: Private vehicle (with Boris. 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 She will f/u with her PCP as above and with her specialists and continue per her plan of care. Radha will be transported home by her son in a private vehicle. CM will continue to follow. Social Determinants of Health Screening Social Determinants of health last assessed in clinic: 01/13/25 Will the Patient Participate in the Screening?: Yes Do you worry about having a steady place to live?: no Problems where you live: no known problems In the past 12 months, have you had to go without electric, gas, oil or water in your home?: no 1. Within the past 12 months, we worried whether our food would run out before we got money to buy more.: Don't know/refused 2. Within the past 12 months, the food we bought just didn't last and we didn't have money to get more.: Don't know/refused Has lack of transportation kept you from medical appointments or from doing things needed for daily living?: no Has anyone in your life made you feel unsafe or unsupported?: no How hard is it for you to pay for the very basics like food, housing, medical care, and heating? Would you say it is:: Not hard at all Do you want help finding or keeping work or a job?: I do not need or want help If for any reason you need help with day-to-day activities such as bathing, preparing meals, shopping, managing finances, etc., do you get the help you need?: I get all the help I need How often do you feel lonely or isolated from those around you?: Rarely Do you speak a language other than Finnish at home?: No Health Related Social Needs Health related social needs: feeling lonely/isolated (Z60.8)
--- NOTE | 2025-01-13 17:32 | DSE_ITS ---
Date of service: 01/14/25 Time of Service: 06:36 DS: Diagnosis Discharge Diagnosis (1) Status post above-knee amputation of left lower extremity: Status: Acute (2) Continuous tobacco abuse: Status: Chronic (3) Adenocarcinoma of endometrium, stage 3: Status: Chronic (4) Depression: Status: Chronic (5) Hyperlipidemia: Status: Acute (6) Type 2 diabetes mellitus: Status: Chronic (7) HTN (hypertension): Status: Chronic (8) PVD (peripheral vascular disease): Status: Chronic (9) Palliative care patient: Status: Acute (10) Advanced care planning/counseling discussion: Status: Acute Discharge Plan Disposition Patient Disposition: Home W/Home Health Services Condition: Improving Discharge Details Reason For Visit: ambulatory dysfunction s/p Left AKA Admit Date/Time: 01/02/25 17:56 Admit Provider: Enrique Moore Attending Provider: Enrique Moore Primary Care Provider: Unknown,Unknown Hospital Course Hospital Course: This is a 74-year-old female patient w a PMHx of diabetes, stage III adenocarcinoma of her uterus? treated with surgery and follow-up chemotherapy and remission then subsequent lower back metastatic lesions, delayed?? wound healing [place] [facility] [place] s/p left AKA after attempt of thrombectomy and 4 compartment-fasciotomy d/t? acute ischemic left leg secondary to thrombus in her superficial left femoral artery and compromised tissue below the knee while having resumed chemotherapy after this diagnosis and was traveling [place] [facility] [place] these treatments.? The patient continued to receive PT and was deemed safe for discharge with ongoing home health physical therapy, nursing, raker buffing wheel and occupational therapy. Follow-up with [facility] vascular resulting in partial removal of sutures and mildred to the left AKA wound. Vascular to reach out to patient for further follow-up. Scripts sent for the medicines you mentioned not having at home as requested. Insulin Lantus was available at home as per discussion. -Gynecology/oncology telehealth appointment with Nemo Hamm on 01/22 at 1pm. -PCP appointment with La Nena Valle at [facility] on 01/24 at 10:30. Discussed with Dr. Barreto Home Meds and New Rx's Prescriptions: New sertraline 50 mg Tablet 50 mg PO DAILY Qty: 10 0RF sennosides-docusate sodium [Colace 2-In-1] 8.6-50 mg Tablet 1 tab PO BID Qty: 60 0RF polyethylene glycol 3350 17 gram Powder In Packet 17 g PO DAILY Qty: 30 0RF oxycodone 5 mg Tablet 5 mg PO Q4H PRN PRNQty: 20 0RF nystatin [Nystop] 100,000 unit/gram Powder 1 applic topical BID Qty: 15 0RF melatonin 3 mg Tablet 3 mg PO HS PRN PRNQty: 30 0RF magnesium oxide 400 mg (241.3 mg magnesium) Tablet 400 mg PO BID Qty: 60 0RF lidocaine 5 % Adhesive Patch,Medicated 1 patch transdermal DAILY Qty: 30 0RF aspirin 81 mg Tablet,Chewable 81 mg CH DAILY Qty: 30 0RF Enrique (with collagen) 7-7-1.5 gram powder in packet 1 packet PO BID Qty: 60 0RF Rx Instructions: mix 1 packet with 8-10 oz liquid heparin (porcine) 5,000 unit/mL Solution 5,000 unit SC Q8H Qty: 21 0RF Rx Instructions: Continue until 01/20/25 then stop as per [facility] [place] discharge notes Continued sertraline 50 mg tablet 50 mg PO DAILY Patient Comments: TAKE ONE TABLET BY MOUTH ONCE DAILY lisinopril 2.5 mg tablet 2.5 mg PO DAILY Patient Comments: TAKE ONE TABLET BY MOUTH ONCE DAILY metformin 500 mg tablet 500 mg PO BIDWMEAL metoprolol tartrate 50 mg tablet 50 mg PO BID Patient Comments: TAKE ONE TABLET BY MOUTH TWICE DAILY acetaminophen 325 mg tablet 325 mg PO Q6H PRN Enrique (with collagen) 7-7-1.5 gram powder in packet 1 packet PO BID Rx Instructions: mix 1 packet with 8-10 oz liquid aspirin 81 mg tablet,chewable 81 mg PO DAILY atorvastatin [Lipitor] 40 mg tablet 40 mg PO QPM insulin glargine-yfgn [Semglee(insulin glargine-yfgn)] 100 unit/mL solution 18 unit subcut QPM magnesium oxide 400 mg magnesium tablet 400 mg PO BID Discontinued heparin (porcine) 5,000 unit/mL solution 5,000 unit subcut Q8H insulin lispro [Humalog U-100 Insulin] 100 unit/mL solution 1 sliding scale dose subcut USEASDIRECTD lidocaine 4 % adhesive patch,medicated 1 patch topical Q24H Rx Instructions: may leave on for up to 12 hrs melatonin 3 mg tablet 3 mg PO HS PRN miconazole nitrate [Antifungal (miconazole)] 2 % powder 1 applic topical BID Patient Comments: B/l groin and under b/l breasts oxycodone 5 mg tablet 5 mg PO Q4H PRN (Reason: pain (scale score 4-6)) polyethylene glycol 3350 17 gram/dose powder 17 g PO BID sennosides-docusate sodium [Lax Stool Softener With Senna] 8.6-50 mg tablet 2 tab-cap PO BID Discharge Instructions Stand Alone Forms: Nursing Discharge Form Referrals: Nemo Hamm [ [facility] STAFF PHYSICIAN, Medicine] - 01/22/25 1:00 pm Referral Note: Gynecology/Oncology telehealth appointment. Unknown,Unknown [Primary Care Provider, Unknown] Referral Note: PCP f/u appointment with La Nena Valle at [facility] on 01/21 at 12:30. Activity:: Activity as Tolerated Equipment/Supplies:: W/C Diet:: heart healthy diabetic Discharge Orders Discharge Orders: Discharge Order (Routine); Ordered 01/02/25 Ordered By: Jessica Dey DS: Summary Time Spent with Patient providing and/or coordinating discharge services: Greater than 30 minutes Status at Discharge Functional status at discharge: independent ambulation Overall status at discharge: patient is progressing back to baseline Mental Status: mental status grossly normal Speech and Movement: speech and movement normal Mood: congruent mood Affect: normal affect Quality:SDOH Health Related Social Needs: Health related social needs lonely/isolated Exam Narrative Exam Narrative: 74 years old morbidly obese female patient appearing older than stated age , without acute distress, A&O X4, neurologically intact, non-icteric sclera, clear lungs unlabored breathing, S1-S2 regular heart rate and rhythm, abdomen is large soft and nontender with old healed scar, minimal bruising from heparin injections, left BKA with sutures intact without drainage or redness, staple removal sites well approximated w/o redness- remains warm and pink in color, RLE w + pedal pulse, cap refill< 3 sec Psych Mental Status: mental status grossly normal Speech and Movement: speech and movement normal Mood: congruent mood Affect: congruent Psych Mental Status: mental status grossly normal Speech and Movement: speech and movement normal Mood: congruent mood Affect: normal affect DS: Data Vitals/I&O Vitals and I&O: Vital Signs Temperature 36.8 C 01/13/25 07:58 Temperature Source Temporal Artery Scan 01/13/25 07:58 Pulse 74 01/13/25 07:58 Respiratory Rate 17 01/13/25 07:58 Blood Pressure 110/69 01/13/25 07:58 Blood Pressure Mean 82 01/13/25 07:58 Pulse Oximetry 98 01/13/25 07:58 Oxygen Delivery Method Room Air 01/13/25 07:58 Oxygen Flow Rate 0 01/13/25 07:58 Pain Level 1 01/13/25 09:46 Intake & Output 01/12/25 01/13/25 01/13/25 23:59 11:59 23:59 Intake Total 600 / 600 Output Total 900 / 900 Balance -300 / -300 Intake: Oral 600 / 600 Output: Urine 900 / 900 Other: Urine Color Yellow Light Patrizia Urine Appearance Clear Clear Urine Odor Normal None Stool Size Small Stool Characteristics Hard Brown PFSH All Active Problems (Updated 01/09/25 @ 12:09 by Jessica Dey APRN) Anemia (Chronic) Advanced care planning/counseling discussion (Acute) Palliative care patient (Acute) Discharge planning issues (Acute) Status post above-knee amputation of left lower extremity (Acute) Continuous tobacco abuse (Chronic) Adenocarcinoma of endometrium, stage 3 (Chronic) Depression (Chronic) Hyperlipidemia (Acute) Type 2 diabetes mellitus (Chronic) HTN (hypertension) (Chronic) PVD (peripheral vascular disease) (Chronic) Social History Smoking/Tobacco Use Status: Current-Occasional Tobacco Type: cigarettes Years smoked: 15 Tobacco: How many years used: 15 Smoking risk assessment performed?: Yes Alcohol Intake: former Drug use: Never Substance use type: does not use Housing: house Do you feel safe at home: Yes Do you feel safe in your relationship?: Yes Time Spent with Patient Time Spent with Patient: >85 minutes Time was spent: preparing to see the patient(eg.review tests), obtaining and/or reviewing separately otained hiistory, ordering medications,tests, procedures, referring, communicating with other health hospice spiritual care coordinator, indepentently interpreting results, counseling the patient, care coordination and other
--- NOTE | 2025-01-13 17:41 | PDOC.HHF2F ---
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 treated with surgery and follow-up chemotherapy and remission then subsequent lower back metastatic lesions, delayed?? wound healing was transferred from [facility] on 01/01/25 s/p left AKA after attempt of thrombectomy and 4 compartment fasciotomy d/t? acute ischemic left leg secondary to thrombus in her superficial left femoral artery and compromised tissue below the knee while having resumed chemotherapy after this diagnosis and was traveling to [facility] for these treatments.? The patient continued to receive PT and was deemed safe for discharge with ongoing home health physical therapy, nursing, finisher cold rolling and occupational therapy. Follow-up with [facility] vascular resulting in partial removal of sutures and mildred to the left AKA. Vascular to reach out to patient for further follow-up. Scripts sent for the medicines you mentioned not having at home as requested. Insulin Lantus was available at home as per discussion. -Gynecology/oncology telehealth appointment with Nemo Hamm on 01/22 at 1pm. -PCP appointment with L aNena Valle at [facility] on 01/24 at 10:30. Discuss[address] with Dr[address] Barreto Document signed and completed on 01/14/25 06:42 Registered Nurse: Check all that apply Instruct on new or changed medication(s)/assess compliance: Ordered Assess for exacerbation of medical condition, instruct patient/caregivers on signs and symptoms to report for early detection: Ordered Physical Therapist: Check all that apply Increase strength & endurance for safe mobility at home: Ordered To design/establish home maintenance program: Ordered Fall reduction therapy program for patient with history of frequent falls: Ordered Home safety evaluation and teaching/gait training including stair management (if applicable): Ordered Occupational Therapist: Evaluate and treat for patient unable to perform ADL/IADL/self-care: Ordered Upper extremity strengthening, range and motion: Ordered Leather Novelty Parts Cutter: Assist with community resources: Ordered Assist with termite treater helper care planning: Ordered Encounter Date and Reason: I certify that a FTF encounter for this patient was performed on January 13, 2025 and that such encounter was related to the primary reason the patient requires home health services. The encounter was conducted in the following manner: By me as the certifying physician, EXTRUSION DIE REPAIR MANAGER, PA or By an inpatient physician, EXTRUSION DIE REPAIR MANAGER or PA during an inpatient stay who communicated findings to me, Certification And Authentication I certify that I composed the above information based on my clinical judgment relating to this patient's medical condition and, if applicable, clinical findings communicated to me by the NPP or inpatient physician who performed the FTF encounterbri. Name of Provider that will be monitoring home health services: La Nena Valle
[2025-01-13 20:09] VITALS: BP 107/69; PULSE 99; O2SAT 98
[2025-01-13] MEDS: Atorvastatin 40 MG TAB PO (20:10)
[2025-01-13] MEDS: Insulin Glargine 300 UNITS/3 ML PEN 18 UNITS SC (20:11)
[2025-01-13] MEDS: oxyCODONE 5 MG TAB PO (20:13)
[2025-01-14] MEDS: Heparin 5,000 UNITS/ML VIAL 5000 UNITS SC (06:37)
[2025-01-14] MEDS: Acetaminophen 325 MG TAB 650 MG PO (06:47)
[2025-01-14 07:29] VITALS: BP 113/73; PULSE 82; RESP 18; TEMP 36.4; O2SAT 98
[2025-01-14] MEDS: Magnesium Oxide 400 MG TAB PO (07:43)
[2025-01-14] MEDS: Aspirin 81 MG CHEW CH (07:43)
[2025-01-14] MEDS: metFORMIN 500 MG TAB PO (07:43)
[2025-01-14] MEDS: Nystatin POWDER 15 GM JAR TP (07:44)
[2025-01-14] MEDS: Insulin Aspart 300 UNITS/3 ML PEN SC (07:44)
[2025-01-14] MEDS: Sertraline 50 MG TAB PO (07:44)
[2025-01-14] MEDS: Lisinopril 2.5 MG TAB PO (07:44)
[2025-01-14] MEDS: Sennosides/Docusate Sodium TAB 1 TAB PO (07:44)
[2025-01-14] MEDS: Metoprolol 50 MG TAB PO (07:44)
[2025-01-14] MEDS: Polyethylene Glycol 3350 17 GM PACKET PO (07:44)
--- NOTE | 2025-01-14 08:29 | CMDISCH_ITS ---
Date of service: 01/14/25 Time of Service: 08:29 LACE Index Scoring Tool Questions: Length of Stay (in days): 7 - 13 Was the patient admitted via the E.D.?: No Comorbidities: Diabetes w/o Complication and Metastatic Solid Tumor E.D. Visits: 0 Answers: Total Score: 10 Risk of Readmission: High Risk Care Management Discharge Plan Reason for Hospitalization: swing bed s/p left AKA Discharge Plan: Radha was discharged home this morning with new services of [facility] SN, PT/OT. She has a referral in place at [place] [facility] for help with LTC Medicaid application and community resources. Radha will f/u with her PCP - correction it is La Nena Hanley -at [facility] on 01/24. She will have a telehealth visit with oncology on 01/22, and she is to call vascular surgery for a follow up. Her medications have all been sent in. She was given 3 doses of heparin along with the necessary needles from [facility] to get her through until tomorrow when the heparin will be available at her pharmacy. Radha and her son are aware of all of this and are in agreement with her discharge. Radha was driven home by her son, and her friend will be staying with her today. Patient/Family Education Needs: Review of discharge instructions, activity, limitations and discuss Ask me 3. Services Needed at Discharge: Home Health Care Services (,PT/OT) SDOH Health Related Social Needs: Health related social needs lonely/isolated
--- NOTE | 2025-01-14 09:19 | CMSCP_ITS ---
Date of service: 01/14/25 Time of Service: 09:19 Swingbed Plan of Care Activites/Discharge Plan of care: SWING BED PROGRAM ACTIVITIES/DISCHARGE PLAN OF CARE ACTIVITIES PLAN Date: Identified Need: Intervention/Plan: Initials DISCHARGE PLAN Date:01/14/25 Identified Need:Home health services and provider follow ups Intervention/Plan:Radha was discharged home this morning with new services of [facility] SN, PT/OT. She has a referral in place at [place] [facility] for help with LTC Medicaid application and community resources. Radha will f/u with her PCP - correction it is La Nena Hanley -at [facility] on 01/24. She will have a telehealth visit with oncology on 01/22, and she is to call vascular surgery for a follow up. Her medications have all been sent in. She was given 3 doses of heparin along with the necessary needles from [facility] to get her through until tomorrow when the heparin will be available at her pharmacy. Radha and her son are aware of all of this and are in agreement with her discharge. Radha was driven home by her son, and her friend will be staying with her today. Initials: DELILAH
--- NOTE | 2025-01-14 12:05 | PDOC.HHF2F_ITS ---
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 treated with surgery and follow-up chemotherapy and remission then subsequent lower back metastatic lesions, delayed?? wound healing was transferred from [facility] on 01/01/25 s/p left AKA after attempt of thrombectomy and 4 compartment fasciotomy d/t? acute ischemic left leg secondary to thrombus in her superficial left femoral artery and compromised tissue below the knee while having resumed chemotherapy after this diagnosis and was traveling to [facility] for these treatments.? The patient continued to receive PT and was deemed safe for discharge with ongoing home health physical therapy, nursing, apprentice technician and occupational therapy. Follow-up with [facility] vascular resulting in partial removal of sutures and mildred to the left AKA. Vascular to reach out to patient for further follow-up. Scripts sent for the medicines you mentioned not having at home as requested. Insulin Lantus was available at home as per discussion. -Gynecology/oncology telehealth appointment with Nemo Hamm on 01/22 at 1pm. -PCP appointment with La Nena Valle at [facility] on 01/24 at 10:30. Discussed with Dr. Barreto Document signed and completed on 01/14/25 06:42 Registered Nurse: Check all that apply Instruct on new or changed medication(s)/assess compliance: Ordered Assess for exacerbation of medical condition, instruct patient/caregivers on signs and symptoms to report for early detection: Ordered Physical Therapist: Check all that apply Increase strength & endurance for safe mobility at home: Ordered To design/establish home maintenance program: Ordered Fall reduction therapy program for patient with history of frequent falls: Ordered Home safety evaluation and teaching/gait training including stair management (if applicable): Ordered Occupational Therapist: Evaluate and treat for patient unable to perform ADL/IADL/self-care: Ordered Upper extremity strengthening, range and motion: Ordered Bass Fisher: Assist with community resources: Ordered Assist with buttermilk drier operator care planning: Ordered Encounter Date and Reason: I certify that a FTF encounter for this patient was performed on January 14, 2025 and that such encounter was related to the primary reason the patient requires home health services. The encounter was conducted in the following manner: * By me as the certifying physician, NONDESTRUCTIVE TESTER, PA or * By an inpatient physician, NONDESTRUCTIVE TESTER or PA during an inpatient stay who communicated findings to me, Certification And Authentication I certify that I composed the above information based on my clinical judgment relating to this patient's medical condition and, if applicable, clinical findings communicated to me by the NPP or inpatient physician who performed the FTF encounter. Name of Provider that will be monitoring home health services: La Nena Valle
== END 2025-01-14 08:35 | disposition home health service (06) | DRG 560 ==
PROVIDERS: Family Medicine; Admitting Provider Family Medicine; PCP Nurse Practitioner; Responsible Provider Nurse Practitioner Acute Care; Visit Provider Family Medicine
DX: Z47.81 Encounter for orthopedic aftercare following surgical amputation (principal); D68.69 Other thrombophilia; Z68.41 Body mass index [BMI] 40.0-44.9, adult; C54.1 Malignant neoplasm of endometrium; Z89.612 Acquired absence of left leg above knee; F17.210 Nicotine dependence, cigarettes, uncomplicated; E11.51 Type 2 diabetes mellitus with diabetic peripheral angiopathy without gangrene; E78.2 Mixed hyperlipidemia; Z79.4 Long term (current) use of insulin; I10 Essential (primary) hypertension; I73.9 Peripheral vascular disease, unspecified; E78.5 Hyperlipidemia, unspecified; Z79.899 Other long term (current) drug therapy; F32.A Depression, unspecified; E66.01 Morbid (severe) obesity due to excess calories
CPT/HCPCS: 00123; 36415; 80048; 85027; 97110; 97112; 97116; 97161; 97166; 97530; 99316; 84484; 99306; 99310; J1644; J1815; J3490